=== PATIENT | female | born 1980 | race Caucasian/White ===

== ENCOUNTER 2018-02-09 22:40 | Inpatient (IN) | payer MEDICARE ==
[2018-02-09] MEDS ORDERED: LIDOCAINE 1% INJ 10MG/ML (20 ML MDV) SQ STA (23:26)
--- NOTE | 2018-02-09 23:34 | ED ---
General Adult HPI <Cindy Mendez - Last Filed: 02/10/18 00:24> - General Source: patient, RN notes reviewed, old records reviewed Mode of arrival: ambulatory Limitations: no limitations <Car Aj - Last Filed: 02/10/18 06:24> - General Chief complaint: Psychiatric Symptoms Stated complaint: Sucidal, lacerations Time Seen by Provider: 02/09/18 22:51 - History of Present Illness Initial comments: this is a 38-year-old female the ER for evaluation of psychiatric treatment. Patient has history of psychiatric illness coming in with couple drinks and shots that were drank tonight. Patient has psychiatric symptoms suicidal thoughts and she did cut herself tonight. (Car Aj) - Related Data Home Medications Medication Instructions Recorded Confirmed No Known Home Medications 02/10/18 02/10/18 Allergies Allergy/AdvReac Type Severity Reaction Status Date / Time naproxen [From Naprosyn] Allergy Anaphylaxis Verified 02/10/18 03:57 Review of Systems ROS Other: All systems not noted in ROS Statement are negative. <VanessaCindy - Last Filed: 02/10/18 00:24> ROS Other: All systems not noted in ROS Statement are negative. <Car Aj - Last Filed: 02/10/18 06:24> ROS Statement: Those systems with pertinent positive or pertinent negative responses have been documented in the HPI. Past Medical History Past Medical History: No Reported History History of Any Multi-Drug Resistant Organisms: None Reported Past Surgical History: Bladder Surgery, Ear Surgery, Hysterectomy, Tonsillectomy Past Psychological History: Anxiety, Bipolar, Depression, PTSD Smoking Status: Current some day smoker Past Alcohol Use History: Daily Past Drug Use History: None Reported <Car Aj - Last Filed: 02/10/18 06:24> General Exam Limitations: no limitations General appearance: alert, in no apparent distress Head exam: Present: atraumatic, normocephalic, normal inspection Eye exam: Present: normal appearance, PERRL, EOMI. Absent: scleral icterus, conjunctival injection, periorbital swelling ENT exam: Present: normal exam, mucous membranes moist Neck exam: Present: normal inspection. Absent: tenderness, meningismus, lymphadenopathy Respiratory exam: Present: normal lung sounds bilaterally. Absent: respiratory distress, wheezes, rales, rhonchi, stridor Cardiovascular Exam: Present: regular rate, normal rhythm, normal heart sounds. Absent: systolic murmur, diastolic murmur, rubs, gallop, clicks GI/Abdominal exam: Present: soft, normal bowel sounds. Absent: distended, tenderness, guarding, rebound, rigid Extremities exam: Present: normal inspection, full ROM, normal capillary refill. Absent: tenderness, pedal edema, joint swelling, calf tenderness Back exam: Present: normal inspection Neurological exam: Present: alert, oriented X3, CN II-XII intact Psychiatric exam: Present: normal affect, normal mood Skin exam: Present: warm, dry, intact, normal color. Absent: rash <Car Aj - Last Filed: 02/10/18 06:24> Course <Cindy Mendez - Last Filed: 02/10/18 00:24> <Car Aj - Last Filed: 02/10/18 06:24> Vital Signs 02/09/18 22:43 Temperature 97.7 F Pulse Rate 76 Respiratory 18 Rate Blood Pressure 114/69 O2 Sat by Pulse 98 Oximetry - Reevaluation(s) Reevaluation #1: 02/10/18 01:33 patient is medically clear for psychiatric evaluation (Car Aj) Procedures - Laceration Laceration #1 Site: upper extremity Size (cm): 3 Description: linear Depth: simple, single layer Anesthetic Used: lidocaine 1% Anesthesia Technique: local infiltration Amount (mls): 5 Pre-repair: wound explored, irrigated extensively Type of Sutures: nylon Size of Sutures: 4-0 Number of Sutures: 3 Technique: simple, interrupted Patient Tolerated Procedure: well, no complications Laceration #2 Site: upper extremity (Left wrist) Size (cm): 3 Description: linear Depth: simple, single layer Anesthetic Used: lidocaine 1% Anesthesia Technique: local infiltration Amount (mls): 4 Pre-repair: wound explored, irrigated extensively Type of Sutures: nylon Size of Sutures: 4-0 Number of Sutures: 4 Technique: simple, interrupted Patient Tolerated Procedure: well, no complications <Cindy Mendez - Last Filed: 02/10/18 00:24> Medical Decision Making <Cindy Mendez - Last Filed: 02/10/18 00:24> <Car Aj - Last Filed: 02/10/18 06:24> - Medical Decision Making 38 female will be admitted for psychiatric evaluation and treatment (Car Aj) - Lab Data Lab Results 02/09/18 Range/Units 23:10 Urine Opiates Screen Not Detected (NotDetected) Ur Oxycodone Screen Not Detected (NotDetected) Urine Methadone Screen Not Detected (NotDetected) Ur Propoxyphene Screen Not Detected (NotDetected) Ur Barbiturates Screen Not Detected (NotDetected) U Tricyclic Antidepress Not Detected (NotDetected) Ur Phencyclidine Scrn Not Detected (NotDetected) Ur Amphetamines Screen Not Detected (NotDetected) U Methamphetamines Scrn Not Detected (NotDetected) U Benzodiazepines Scrn Not Detected (NotDetected) Urine Cocaine Screen Not Detected (NotDetected) U Marijuana (THC) Screen Not Detected (NotDetected) Disposition <Cindy Mendez - Last Filed: 02/10/18 00:24> Is patient prescribed a controlled substance at d/c from ED?: No <Car Aj - Last Filed: 02/10/18 06:24> Clinical Impression: Depression, Suicidal ideation Disposition: TRANSFER TO PSYCH HOSP/UNIT Condition: Fair
[2018-02-10] MEDS ORDERED: ACETAMINOPHEN TAB 500 MG TAB PO STA (01:00)
[2018-02-10 01:31] LABS: Amphetamine Screen,Urine Not Detected (NotDetected); Barbiturate Screen,Urine Not Detected (NotDetected); Benzodiazepines Screen,Urine Not Detected (NotDetected); Cocaine Screen,Urine Not Detected (NotDetected); Methadone Screen, Urine Not Detected (NotDetected); Opiate Screen,Urine Not Detected (NotDetected); Oxycodone Screen, Urine Not Detected (NotDetected); Phencyclidine Screen,Urine Not Detected (NotDetected); Tricyclic Antidepressant,Urine Not Detected (NotDetected); Urn Cannabinoid Scrn Not Detected (NotDetected)
[2018-02-10] MEDS ORDERED: MAG HYDROX/AL HYDROX/SIMETH 30 ML CUP PO PRN (02:57)
[2018-02-10] MEDS: LORazepam 1 MG TAB PO PRN ×2 (03:43→20:49)
[2018-02-10 04:35] VITALS: BMI 36.8
[2018-02-10] MEDS ORDERED: DIPH,PERTUS(ACELL)TETVAC-LF 0.5 ML VIAL IM ONE (09:01)
--- NOTE | 2018-02-10 09:15 | P.HPMEDMHU ---
History of Present Illness H&P Date: 02/10/18 Chief Complaint: Consult for MHU HPI The patient is a 38-year-old female with past medical history of depression and bipolar disorder, PTSD and RLS who presented and was admitted to the mental health unit with suicidal/homicidal ideation after she presented with a left forearm laceration. Apparently the patient has been hearing voices that told her to cut her boyfriend, she instead decided to cut herself and called her mom subsequently redirected her to call EMS. On Arrival the patient had a laceration that was repaired with 3 sutures in the ED, she reports her last tetanus shot in 2007. She has a history of restless leg syndrome and states that if she does not take her medication routinely she would have insomnia with constant limb movements and jerking throughout the night. She denies any history of anemia. Review of Systems Review of systems were negative except per HPI Past Medical History Past Medical History: No Reported History History of Any Multi-Drug Resistant Organisms: None Reported Past Surgical History: Bladder Surgery, Ear Surgery, Hysterectomy, Tonsillectomy Past Psychological History: Anxiety, Bipolar, Depression, PTSD Smoking Status: Current some day smoker Past Alcohol Use History: Daily Past Drug Use History: None Reported Medications and Allergies Home Medications Medication Instructions Recorded Confirmed Type No Known Home Medications 02/10/18 02/10/18 History Allergies Allergy/AdvReac Type Severity Reaction Status Date / Time naproxen [From Naprosyn] Allergy Anaphylaxis Verified 02/10/18 03:57 Physical Exam Vitals: Vital Signs Temp Pulse Pulse Resp BP BP Pulse Ox 02/10/18 04:20 97.4 F L 59 L 16 116/70 02/10/18 03:19 98.2 F 55 L 16 102/55 98 02/09/18 22:43 97.7 F 76 18 114/69 98 Intake and Output 02/09/18 02/10/18 02/10/18 22:59 06:59 14:59 Other: Weight 98.883 kg 97.3 kg Constitutional: No acute distress, conversant, pleasant Eyes: Anicteric sclerae, moist conjunctiva, no lid-lag, PERRLA ENMT: NC/AT,Oropharynx clear, no erythema, exudates Neck:Supple, FROM, no masses, or JVD, No carotid bruits; No thyromegaly Lungs: Clear to auscultation, Clear to percussion, Normal respiratory effort, no accessory muscle use Cardiovascular: Heart regular in rate and rhythm, No murmurs, gallops, or rubs no peripheral edema Abdominal: Soft Nontender, nom distended, no guarding, no rebound or rigidity, Normoactive bowel sounds No hepatomegaly, No splenomegaly, No palpable mass No abdominal wall hernia noted Skin: Normal temperature, tone, texture, turgor, No induration No subcutaneous nodules, No rash, lesions, No ulcers Extremities:No digital cyanosis No clubbing, Pedal pulses intact and symmetrical Radial pulses intact and symmetrical Normal gait and station, No calf tenderness Psychiatric: Alert and oriented to person, place and time, tangential, disheveled, flat affect. Neuro: Muscles Strength 5/5 in all 4 extremities, Sensation to light touch grossly present throughout, Cranial nerves II-XII grossly intact. No focal sensory deficits - EENT ENT: pharyngeal erythema, tonsillar swelling Cranial Nerve Examination - Cranial Nerves Cranial Nerve II- Optic: Intact Cranial Nerve III- Oculomotor: Intact Cranial Nerve IV- Trochlear: Intact Cranial Nerve V- Trigeminal: Intact Cranial Nerve - Abducens: Intact Cranial Nerve VII- Facial: Intact Cranial Nerve VIII- Auditory: Intact Cranial Nerve IX- Glossopharyngeal: Intact Cranial Nerve X- Vagus: Intact Cranial Nerve XI- Accessory: Intact Cranial Nerve XII- Hypoglossal: Intact Thrombosis Risk Factor Assmnt - Choose All That Apply Other Risk Factors: No Other congenital or acquired thrombophilia - If yes, enter type in comment: No Assessment and Plan (1) Restless legs syndrome Current Visit: Yes Status: Acute Code(s): G25.81 - RESTLESS LEGS SYNDROME SNOMED Code(s): 95812096 (2) Depression Current Visit: Yes Status: Acute Code(s): F32.9 - MAJOR DEPRESSIVE DISORDER , SINGLE EPISODE, UNSPECIFIED SNOMED Code(s): 04906650 (3) Laceration Current Visit: Yes Status: Acute Code(s): JFG9927 - SNOMED Code(s): 915005117 (4) Suicidal ideation Current Visit: Yes Status: Acute Code(s): R45.851 - SUICIDAL IDEATIONS SNOMED Code(s): 7975948 Plan: The patient is admitted to the mental health unit with schizoaffective symptomology presenting with suicidal ideation and left upper extremity lacerations after hearing voices. We'll defer to the mental health team for ongoing medical psychotherapy and CBT. The patient is currently not up-to-date with her tetanus shot so we'll give her dose and restart therapy with her ropinirole for her RLS. The patient is otherwise medically stable, we'll plan to sign off today. Further questions or concerns please do not hesitate to contact the sound inpatient team. I appreciate the opportunity being involved ongoing care of this patient.
[2018-02-10] MEDS: NICOTINE 14MG/24HR PATCH TRANSDERM SCH (09:36)
[2018-02-10 10:18] LABS: Basophils % (A) 1 %; Eosinophils # (A) 0.1 k/uL (0-0.7); Eosinophils % (A) 2 %; HCT 43.5 % (34.0-46.0); HGB 13.2 gm/dL (11.4-16.0); Hypochromasia Slight; Lymphocytes % (A) 29 %; MCH 28.9 pg (25.0-35.0); MCHC 30.4 g/dL (31.0-37.0); MCV 95.1 fL (80.0-100.0); Mean Platelet Volume 6.7; Monocytes # (A) 0.3 k/uL (0-1.0); Monocytes % (A) 4 %; Neutrophils # (A) 4.4 k/uL (1.3-7.7); Neutrophils % (A) 63 %; Platelet Count 256 k/uL (150-450); RBC 4.57 m/uL (3.80-5.40); RDW 14.1 % (11.5-15.5)
[2018-02-10 10:22] LABS: Albumin 3.5 g/dL (3.5-5.0); Calcium 9.4 mg/dL (8.4-10.2); Potassium 5.4 mmol/L (3.5-5.1); Total Bilirubin 0.3 mg/dL (0.2-1.3)
--- NOTE | 2018-02-10 14:02 | P.HP ---
Psychiatric H&P - . H&P Date: 02/10/18 (Appearance/Attitude: []) History & Physical: Allergies Allergy/AdvReac Type Severity Reaction Status Date / Time naproxen [From Naprosyn] Allergy Anaphylaxis Verified 02/10/18 03:57 Vital Signs Temp 97.4 F L 02/10/18 04:20 Pulse 59 L 02/10/18 04:20 Resp 16 02/10/18 04:20 BP 116/70 02/10/18 04:20 Pulse Ox 98 02/10/18 03:19 Intake & Output 02/09/18 02/10/18 02/10/18 18:59 06:59 18:59 Weight 97.3 kg Laboratory Last Values Urine Opiates Screen Not Detected (NotDetected) 02/09/18 23:10 Ur Oxycodone Screen Not Detected (NotDetected) 02/09/18 23:10 Urine Methadone Screen Not Detected (NotDetected) 02/09/18 23:10 Ur Propoxyphene Screen Not Detected (NotDetected) 02/09/18 23:10 Ur Barbiturates Screen Not Detected (NotDetected) 02/09/18 23:10 U Tricyclic Antidepress Not Detected (NotDetected) 02/09/18 23:10 Ur Phencyclidine Scrn Not Detected (NotDetected) 02/09/18 23:10 Ur Amphetamines Screen Not Detected (NotDetected) 02/09/18 23:10 U Methamphetamines Scrn Not Detected (NotDetected) 02/09/18 23:10 U Benzodiazepines Scrn Not Detected (NotDetected) 02/09/18 23:10 Urine Cocaine Screen Not Detected (NotDetected) 02/09/18 23:10 U Marijuana (THC) Screen Not Detected (NotDetected) 02/09/18 23:10 02/10/18 10:00 The patient is a 38-year-old female with past medical history of depression and bipolar disorder, PTSD and RLS who presented and was admitted to the mental health unit with suicidal/homicidal ideation after she presented with a left forearm laceration. Cut arm with steak knife, three to four timed Apparently the patient has been hearing voices that told her to cut her boyfriend, she instead decided to cut herself and called her mom subsequently redirected her to call EMS. On Arrival the patient had a laceration that was repaired with 3 sutures in the ED, she reports her last tetanus shot in 2007. She has a history of restless leg syndrome and states that if she does not take her medication routinely she would have insomnia with constant limb movements and jerking throughout the night. She denies any history of anemia. Past Medical History Past Medical History: No Reported History History of Any Multi-Drug Resistant Organisms: None Reported Past Surgical History: Bladder Surgery, Ear Surgery, Hysterectomy, Tonsillectomy Past Psychological History: Anxiety, Bipolar, Depression, PTSD; started age 13 and she now seeing an therapist and will be set up Psychiatrist o Smoking Status: Current some day smoker 5/night Past Alcohol Use History: Daily-6 beers a night and 1/2 fireball Past Drug Use History: None Reported General Exam Limitations: no limitations General appearance: alert, in no apparent distress Head exam: Present: atraumatic, normocephalic, normal inspection Eye exam: Present: normal appearance, PERRL, EOMI. Absent: scleral icterus, conjunctival injection, periorbital swelling ENT exam: Present: normal exam, mucous membranes moist Neck exam: Present: normal inspection. Absent: tenderness, meningismus, lymphadenopathy Respiratory exam: Present: normal lung sounds bilaterally. Absent: respiratory distress, wheezes, rales, rhonchi, stridor Cardiovascular Exam: Present: regular rate, normal rhythm, normal heart sounds. Absent: systolic murmur, diastolic murmur, rubs, gallop, clicks GI/Abdominal exam: Present: soft, normal bowel sounds. Absent: distended, tenderness, guarding, rebound, rigid Extremities exam: Present: normal inspection, full ROM, normal capillary refill. Absent: tenderness, pedal edema, joint swelling, calf tenderness Back exam: Present: normal inspection Neurological exam: Present: alert, oriented X3, CN II-XII intact Psychiatric exam: Present: normal affect, Skin exam: Present: warm, dry, intact, normal color. Absent: rash 02/10/18 11:06 My mental status exam This is a 38-year-old female who lives with her boyfriend with past medical history of depression and bipolar disorder, posttraumatic stress disorder and RLS who is dressed in hospital gown flat affect and has not been compliant under Zyprexa which outpatient basis and stop that 8 months ago. Appearance behavior: She is alert to person place and time and event why she came in here and tells in detail that she was hearing voices and she was drinking alcohol usually 5 beers with a half fifth of fireball. 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 Behavior: She has able sit still but is responding to internal stimuli she says the voices are there and they're male and female nature. Last night she said she heard voices telling him to harm herself and her boyfriend. She has children from a previous marriage but has visitation every other weekend with her children. Speech/language; she is articulate and her discussion tends to trail off our during the interview and is obvious that she is responding to internal stimuli Thought process: She is responding to internal stimuli and admits to and is distracted by the voices Suicidal homicidal ideation: She has brought the hospital during middle night and then on the work early this morning and has had numerous psychiatric hospitalizations prior which all started when she was 13. She admits to being suicidal at the current time but is able to contract for safety. 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 She is able to do serial sevens backwards, current events and has a global intact cognition. Mood/affect; she does have a very flat affect and admits to being severely depressed on 10 anxiety 8 out of 10 and has the recurrent thoughts of suicide when she's had since she's been age 13. Insight and judgment: She knew that she needed help last night was able to come in to the ED. Impressions: Spectrum disorder schizoaffective bipolar type with acute exacerbation of suicidal ideation and attempt with laceration of her wrist. She was cared for in the emergency room and transferred the floor this morning. She was seen [id number] time 45 minutes and additional 30 minutes for collaboration with nursing staff. Considering she also is alcohol use disorder severe which is a co-factor for her schizoaffective bipolar type disorder to be severely [id number] the present time. She also has not been Plan: Medications to be added Invega, 3 mg at bedtime for her auditory hallucinations. Reason for the Invega and said she didn't like the side effect of Zyprexa and weight gain and thus the choice of Invega with the possibility of future injectable. A lithium level was obtained as well to see if she is in the therapeutic range which I doubt she is at the current time since she is not had a lithium level nor psychiatrist to evaluate her at least since June 2017. Should've been admitted and working memory or environment and safety concerns and safety checks will be monitored on a daily basis. She also be integrated barragan and therapeutic environment with social work, recreational therapy, nursing staff and call managed by internal medicine. It appears she does not have a structured social environment and is not adherent to the medical treatment plan. This will be emphasized to her during her hospitalization making sure she has follow-up appointments with the psychiatrist and her therapist. Assessment and Plan (1) Depression Current Visit: Yes Status: Acute Code(s): F32.9 - MAJOR DEPRESSIVE DISORDER , SINGLE EPISODE, UNSPECIFIED SNOMED Code(s): 49132746 (2) Laceration Current Visit: Yes Status: Acute Code(s): QFN7676 - SNOMED Code(s): 120422047 (3) Restless legs syndrome Current Visit: Yes Status: Acute Code(s): G25.81 - RESTLESS LEGS SYNDROME SNOMED Code(s): 94236025 (4) Suicidal ideation Current Visit: Yes Status: Acute Code(s): R45.851 - SUICIDAL IDEATIONS SNOMED Code(s): 1460166 Altered Mental Status Exam - General General appearance: anxious, obese Limitations: no limitations - Head Head exam: atraumatic - Eye Eye exam: normal appearance, PERRL, EOMI With correction: Yes (20/20) Pupils: normal accommodation - ENT ENT exam: normal exam - Neck Neck exam: normal inspection - Respiratory Respiratory exam: normal lung sounds bilaterally - Cardiovascular Cardiovascular Exam: regular rate Peripheral pulses: 1+: Carotid (R), Carotid (L) - GI/Abdominal GI/Abdominal exam: soft, normal bowel sounds - Rectal Rectal exam: deferred - exam: deferred - Back Back exam: Reports: normal inspection, muscle spasm, paraspinal tenderness, vertebral tenderness - Neurological Neurological Exam: Oriented X3, CN II-XII Intact, Normal Gait - Psychiatric Psychiatric exam: depressed, anxious, manic - Skin Skin exam: warm
[2018-02-10 17:58] LABS: Hemoglobin A1C 4.9 % (4.0-6.0)
[2018-02-10] MEDS: ACETAMINOPHEN TAB 325 MG TAB PO PRN (18:38)
[2018-02-10] MEDS: PALIPERIDONE 3 MG TAB.ER.24 PO SCH (20:47)
[2018-02-10] MEDS: NALTREXONE HCL 50 MG TAB PO SCH (20:47)
[2018-02-10] MEDS ORDERED: PALIPERIDONE 3 MG TAB.ER.24 PO SCH (22:45)
[2018-02-11] MEDS: MAGNESIUM HYDROXIDE 2,400 MG/10 ML CUP PO PRN (06:51)
[2018-02-11] MEDS: NICOTINE 14MG/24HR PATCH TRANSDERM SCH (07:55)
[2018-02-11] MEDS ORDERED: NALTREXONE HCL 50 MG TAB PO SCH (09:00)
--- NOTE | 2018-02-11 12:47 | P.PN ---
Progress Note - Text Progress Note Date: 02/11/18 Interval History: The patient presents alert, pleasant, hypomanic and cooperative. There calmly seated without any agitated behavior. [She] reports that [3 out of 10] mood is good. Affect is congruent and euthymic. [She] deny having any suicidal or homicidal ideation intent or plan. [She] denies any auditory or visual hallucinations. There is no evidence of any delusional thought content. [] thought process is linear and goal-directed. [Her] speech is fluent and pressured. [Her] memory and concentration is grossly intact for the purposes of this session. Mental Status: [] Mental status exam: She presented as a casually dressed and groomed young female who was pleasant on approach. She made eye contact and appeared to attend to the interview. She had a bright facial expression. She showed slight psychomotor retardation but no abnormal movements. Her speech was spontaneous with normal rate and rhythm. She demonstrated poverty of content speech. Her affect was blunted but stable and appropriate. She denied suicidal ideation, wishes or homicidal ideation. She denied feeling hopeless, helpless or worthless. She expressed no phobias, ideas reference, paranoid ideation or clear to occasional thoughts. Her thinking was concrete but her associations appeared coherent. He did not demonstrate perseverations or neologisms. She appeared to have no thought thought blocking. She denied hallucinations and did not appear to be responding to internal stimuli. Assessment: Overall she appears moderately mentally ill and markedly improve from admission. He questioned whether she may face charges of child abuse for child endangerment. Plan: Continue inpatient hospitalization. Continue safety precautions Plan: [Add back lithium 450 mg twice a day will do a blood level in 2 days continue with the Invega 3 mg at bedtime and ReVia for impulse control of alcohol. Discussed in detail today why she should not drink alcohol.] Face-to- face time was 12:30 PM to 12:46 PM
[2018-02-11] MEDS ORDERED: PALIPERIDONE 3 MG TAB.ER.24 PO SCH (20:00)
[2018-02-11] MEDS: PALIPERIDONE 3 MG TAB.ER.24 PO SCH (20:37)
[2018-02-11] MEDS: LITHIUM CARBONATE ER 450 MG TABLET.ER PO SCH (20:37)
[2018-02-11] MEDS: NALTREXONE HCL 50 MG TAB PO SCH (20:37)
[2018-02-11] MEDS: LORazepam 1 MG TAB PO PRN (20:42)
[2018-02-12 07:02] LABS: Appearance,Urine Clear (Clear); Bilirubin,Urine Negative (Negative); Blood,Urine Negative (Negative); Color,Urine Colorless; Glucose,Urine (UA) Negative (Negative); Ketones,Urine Negative (Negative); Leukocyte Esterase,Urine Negative (Negative); Nitrite,Urine Negative (Negative); PH, Urine 7.5 (5.0-8.0); Protein,Urine Negative (Negative); Specific Gravity,Urine 1.003 (1.001-1.035); Urobilinogen,Urine <2.0 mg/dL (<2.0)
[2018-02-12] MEDS: LITHIUM CARBONATE ER 450 MG TABLET.ER PO SCH ×2 (08:33→20:12)
[2018-02-12] MEDS: NICOTINE 14MG/24HR PATCH TRANSDERM SCH (08:33)
[2018-02-12 10:14] LABS: Albumin 3.5 g/dL (3.5-5.0); Calcium 9.7 mg/dL (8.4-10.2); Potassium 5.6 mmol/L (3.5-5.1); Total Bilirubin 0.3 mg/dL (0.2-1.3); Total Protein 5.8 g/dL (6.3-8.2)
--- NOTE | 2018-02-12 10:27 | P.PN ---
Progress Note - Text Progress Note Date: 02/12/18 Interval History: The patient presents alert, pleasant, hypomanic and cooperative. There calmly seated without any agitated behavior. [She] reports that [3 out of 10] mood is good. Affect is congruent and euthymic. [She] deny having any suicidal or homicidal ideation intent or plan. [She] denies any auditory or visual hallucinations which she states is quite nice. There is no evidence of any delusional thought content. [] thought process is linear and goal-directed. [Her] speech is fluent and pressured. [Her] memory and concentration is grossly intact for the purposes of this session. Mental Status: Mental status exam: She presented as a casually dressed and groomed young female who was pleasant on approach. She made eye contact and appeared to attend to the interview. She had a bright facial expression. She showed slight psychomotor retardation but no abnormal movements. Her speech was spontaneous with normal rate and rhythm. She demonstrated poverty of content speech. Her affect was blunted but stable and appropriate. She denied suicidal ideation, wishes or homicidal ideation. She denied feeling hopeless, helpless or worthless. She expressed no phobias, ideas reference, paranoid ideation or clear to occasional thoughts. Her thinking was concrete but her associations appeared coherent. He did not demonstrate perseverations or neologisms. She appeared to have no thought thought blocking. She denied hallucinations and did not appear to be responding to internal stimuli. Assessment: Overall she appears moderately mentally ill and markedly improve from admission. He questioned whether she may face charges of child abuse for child endangerment. It's most likely her diagnosis is bipolar affective disorder manic mood Plan: Continue inpatient hospitalization. Continue safety precautions Plan: [Add back lithium 450 mg twice a day will do a blood level in 2 days continue with the Invega mg at bedtime and ReVia 50 mg for impulse control of alcohol. Discussed in detail today why she should not drink alcohol. She will also have daily lithium levels knowledge she said 900 mg a day] [id number] time was 1010 to 10:25 AM
[2018-02-12 11:43] LABS: Urine Alcohol Negative (Negative); Urine Barbiturate Negative (Negative); Urine Cocaine Negative (Negative); Urine Methadone Negative (Negative); Urine Opiates Negative (Negative); Urine Phencyclidine Negative (Negative)
[2018-02-12] MEDS ORDERED: SODIUM POLYSTYRENE SULFONATE 15 GM/60 ML BOTTLE PO STA (13:18)
[2018-02-12] MEDS: NALTREXONE HCL 50 MG TAB PO SCH (20:12)
[2018-02-12] MEDS ORDERED: PALIPERIDONE 6 MG TAB.ER.24 PO SCH (21:00)
[2018-02-12] MEDS: MAGNESIUM HYDROXIDE 2,400 MG/10 ML CUP PO PRN (21:05)
[2018-02-13 08:45] LABS: Calcium 9.1 mg/dL (8.4-10.2); Potassium 4.2 mmol/L (3.5-5.1)
[2018-02-13] MEDS: NICOTINE 14MG/24HR PATCH TRANSDERM SCH (08:49)
[2018-02-13] MEDS: LITHIUM CARBONATE ER 450 MG TABLET.ER PO SCH ×2 (08:50→20:21)
[2018-02-13 09:36] LABS: Lithium 0.5 mmol/L
--- NOTE | 2018-02-13 09:40 | P.PN ---
Progress Note - Text Progress Note Date: 02/13/18 Interval History: The patient presents alert, pleasant, and cooperative. There calmly seated without any agitated behavior. [She] reports that [her] mood is good. Affect is congruent and hypomanic. [She] deny having any suicidal or homicidal ideation intent or plan. [She] denies any auditory or visual hallucinations. There is no evidence of any delusional thought content. [She] thought process is linear and goal-directed. [Her] speech is fluent and nonpressured. [Her] memory and concentration is grossly intact for the purposes of this session. Insight/Judgment: [She has appropriate judgment and insight and is able to talk about her previous life how difficult life has been with her. She did describe vivid dreams last night was the first night that she did not take her Ativan to sleep.] Assessment: [Bipolar affective disordermania] Plan: [I will increase her Invega to 9 mg tonight, maintain her lithium 450 twice a day, we'll obtain a lithium level and follow her electrolytes. She is dramatically improved over the week since she's been in the hospital. She will continue to be an group therapy, individual, recurrent medical evaluation of her electrolytes and liver enzymes and integrated into recreational therapy and group therapy. Total time spent with the patient [id number] was 20 minutes.]
[2018-02-13] MEDS: PALIPERIDONE 3 MG TAB.ER.24 PO SCH (20:21)
[2018-02-13] MEDS: NALTREXONE HCL 50 MG TAB PO SCH (20:21)
[2018-02-13] MEDS: MAGNESIUM HYDROXIDE 2,400 MG/10 ML CUP PO PRN (20:23)
[2018-02-13] MEDS ORDERED: PALIPERIDONE 6 MG TAB.ER.24 PO SCH (21:00)
[2018-02-14] MEDS: NICOTINE 14MG/24HR PATCH TRANSDERM SCH (09:05)
[2018-02-14] MEDS: LITHIUM CARBONATE ER 450 MG TABLET.ER PO SCH ×2 (09:06→20:20)
[2018-02-14] MEDS: ACETAMINOPHEN TAB 325 MG TAB PO PRN (16:46)
--- NOTE | 2018-02-14 19:40 | PN ---
PROGRESS NOTE The patient is seen and interviewed in detail, reports that she came in because her voices were getting louder and she relapsed to alcohol, but now she remembers not to drink again, as it makes her voices worse. She now reports her voices are slowing down with the medication. She has been feeling a lot better. She denies any racing thoughts. The patient still has some broken sleep, but denies any other issues. Denies any side effects from medication. Denies suicidal ideation. MENTAL EXAMINATION: Patient is alert, oriented x4, has fair eye contact, few-word sentences. Mood anxious with congruent affect. Denies suicidal ideation. I do not see her responding to internal stimuli. Insight, judgment, improving slowly and gradually. Will start her on Elavil to help her with sleep. ASSESSMENT: Bipolar disorder type I, most recently manic. PLAN: Will continue the current medication. We will start her on Elavil 25 mg at bedtime and titrate up accordingly. Patient is concerned about weight gain. The patient was reassured about the Elavil. The patient is willing to take the medication and encouraged to attend groups and meetings. Admitting support therapy provided. ANAM / MILTON: [id number] /
[2018-02-14] MEDS: AMITRIPTYLINE HCL 25 MG TAB PO SCH (20:20)
[2018-02-14] MEDS: NALTREXONE HCL 50 MG TAB PO SCH (20:20)
[2018-02-14] MEDS: PALIPERIDONE 3 MG TAB.ER.24 PO SCH (20:21)
[2018-02-15 06:52] VITALS: TEMP 98.2
[2018-02-15] MEDS: LITHIUM CARBONATE ER 450 MG TABLET.ER PO SCH ×2 (08:56→20:43)
[2018-02-15] MEDS: NICOTINE 14MG/24HR PATCH TRANSDERM SCH (08:56)
[2018-02-15] MEDS: MAGNESIUM HYDROXIDE 2,400 MG/10 ML CUP PO PRN (12:18)
--- NOTE | 2018-02-15 13:08 | PN ---
PROGRESS NOTE HISTORY: The patient is seen and interviewed, found sitting in the hallway. Reports she did not sleep good last night with Elavil and she wants it to be discontinued as did make her tired during the day. She stated she would handle her sleep issues on her own. Denying any other issues. Mood has been improving slowing and gradually. MENTAL STATUS CONDITION: Patient was alert, oriented x4. Fair eye contact. Speech few word sentences. Mood anxious, dysphoric. Congruent affect. Denies suicidal ideation. I did not see responding to internal stimuli. Insight and judgement improving slowly and gradually. ASSESSMENT: Bipolar disorder type 1, most recent episode manic, resolving. PLAN: Continue to adjust medications accordingly. Will discontinue Elavil as it did not help and patient did not like the side effects. We will continue to monitor her behaviors closely. ANAM / MILTON: [id number] /
[2018-02-15] MEDS: AMITRIPTYLINE HCL 25 MG TAB PO SCH (20:43)
[2018-02-15] MEDS: NALTREXONE HCL 50 MG TAB PO SCH (20:43)
[2018-02-15] MEDS: PALIPERIDONE 3 MG TAB.ER.24 PO SCH (20:43)
[2018-02-16 07:13] VITALS: BP 120/58; RESP 18
[2018-02-16] MEDS: LITHIUM CARBONATE ER 450 MG TABLET.ER PO SCH ×2 (07:53→19:54)
[2018-02-16] MEDS: NICOTINE 14MG/24HR PATCH TRANSDERM SCH (07:53)
--- NOTE | 2018-02-16 11:21 | P.PN ---
Progress Note - Text Progress Note Date: 02/16/18 Interval History: The patient presents somewhat fatigued and somnolent, pleasant , and cooperative. There calmly seated without any agitated behavior. [She] reports that [her] mood is greatly improved. Affect is congruent and hypomanic. [She] deny having any suicidal or homicidal ideation intent or plan. [She] denies any auditory or visual hallucinations. There is no evidence of any delusional thought content. [She] thought process is linear and goal-directed. [Her] speech is fluent and nonpressured. [Her] memory and concentration is grossly intact for the purposes of this session. Insight/Judgment: [She has appropriate judgment and insight and is able to talk about her previous life how difficult life has been with her. She did describe vivid dreams last night was the first night that she did not take her Ativan to sleep. She is currently having difficulty with insomnia night and Dr. Sanchez this weekend and had Elavil 25 mg at bedtime which greatly sedated her and interrupted her sleep and made her fatigue for the last 2 days. Thus as a drug drug interaction and will obtain Elavil blood level today and a lithium level in the morning.] Assessment: [Bipolar affective disordermania] Plan: [I will increase her Invega to 9 mg tonight, maintain her lithium 450 twice a day, we'll obtain a lithium level in the morning and follow her electrolytes. She is dramatically improved over the week since she's been in the hospital. She will continue to be an group therapy, individual, recurrent medical evaluation of her electrolytes and liver enzymes and integrated into recreational therapy and group therapy. Clinical impression today is that she is greatly improved but insomnia is still an issue but the addition of Elavil on has caused cognitive impairment with cholinergic side effects, including postural hypertension, difficulty urinating , poor focus and concentration, dry mouth and therefore want to see her improve over today. I urged her to drink water and carefully get up after setting. She has a meeting at 3:30 today and after getting report of that and the blood levels of discharge. Total time spent with the patient [id number] was 20 minutes.]
[2018-02-16] MEDS: MAGNESIUM HYDROXIDE 2,400 MG/10 ML CUP PO PRN (17:04)
[2018-02-16] MEDS: PALIPERIDONE 3 MG TAB.ER.24 PO SCH (19:54)
[2018-02-16] MEDS: NALTREXONE HCL 50 MG TAB PO SCH (19:54)
[2018-02-17] MEDS: LITHIUM CARBONATE ER 450 MG TABLET.ER PO SCH (08:34)
[2018-02-17] MEDS: NICOTINE 14MG/24HR PATCH TRANSDERM SCH (08:34)
[2018-02-17 10:37] VITALS: PULSE 52
[2018-02-17 14:09] LABS: Amit + Nort <10 ng/mL (90-250); Nortriptyline <10 ng/mL (50-140)
[2018-02-18] MEDS ORDERED: PALIPERIDONE 3 MG TAB.ER.24 PO SCH (09:00)
== END 2018-02-17 13:18 | disposition home or self-care (01) | DRG 885 ==
LOC: EC 22:40 → 3MHU 02-10 02:53
PROVIDERS: ADMIT Psychiatry & Neurology Psychiatry; ATTEND Psychiatry & Neurology Psychiatry
PROC: 0HQCXZZ Repair Left Upper Arm Skin, External Approach (ICD-10-PCS; principal; 2018-02-10)
PROC: 0HQEXZZ Repair Left Lower Arm Skin, External Approach (ICD-10-PCS; principal; 2018-02-10)
DX: F31.9 Bipolar disorder, unspecified (principal); R45.851 Suicidal ideations; F17.200 Nicotine dependence, unspecified, uncomplicated; F43.10 Post-traumatic stress disorder, unspecified; G25.81 Restless legs syndrome; G47.00 Insomnia, unspecified; Z90.710 Acquired absence of both cervix and uterus; Z88.8 Allergy status to other drugs, medicaments and biological substances; S61.512A Laceration without foreign body of left wrist, initial encounter; S41.119A Laceration without foreign body of unspecified upper arm, initial encounter; X78.9XXA Intentional self-harm by unspecified sharp object, initial encounter
CPT/HCPCS: 12002; 80048; 80053; 80061; 80178; 80306; 80335; 81003; 82075; 83036; 84443; 85025; 90715; 93005; 99285

== ENCOUNTER 2018-03-25 08:12 | Day surgery (SDC) | payer MEDICARE ==
[2018-03-18 14:05] VITALS: BMI 39.4
[~2018-03-25 08:12] MED LIST: DEXAMETHASONE SOD PHOSPHATE 10 MG/ML 1 ML VIAL IV ONE; DEXAMETHASONE SOD PHOSPHATE 4 MG/ML 1 ML VIAL IV ONE; FAMOTIDINE 20 MG/2 ML VIAL IV ONE; HYDROmorphone 0.5 MG/0.5 ML SYRINGE IVP PRN; LACTATED RINGERS 1,000 ML IV SCH; LIDOCAINE 1% 20 ML VIAL (10MG/ML) FOR IV START INTRADERMA PRN; MIDAZOLAM 2 MG/2 ML VIAL IV PRN; ONDANSETRON 4 MG/2 ML VIAL IVP ONE; SCOPOLAMINE 1.5MG/72HR PATCH TRANSDERM ONE; ceFAZolin 1,000 MG in DEXTROSE/WATER 1 50ML.BAG IV ONE
[2018-03-25 09:02] VITALS: RESP 16
[2018-03-25] MEDS ORDERED: LIDOCAINE 1% INJ 10MG/ML (20 ML MDV) ONE (10:28)
[2018-03-25] MEDS ORDERED: PROPOFOL 10 MG/ML 20 ML VIAL IV ONE (10:28)
[2018-03-25] MEDS ORDERED: fentaNYL (PF) 50 MCG/ML 2 ML AMP ONE (10:28)
[2018-03-25] MEDS ORDERED: HYDROmorphone (PF) 1 MG/ML ONE (10:28)
[2018-03-25] MEDS ORDERED: MIDAZOLAM 2 MG/2 ML VIAL ONE (10:28)
[2018-03-25] MEDS ORDERED: SUCCINYLCHOLINE CHLORIDE 100 MG/5 ML SYR IV ONE (10:28)
[2018-03-25] MEDS ORDERED: OFLOXACIN 0.3% OPHTH DROPS 5 ML BOTTLE BOTH EARS ONE ×2 (10:38→10:42)
[2018-03-25] MEDS ORDERED: OXYMETAZOLINE 0.05% NASL SPRAY 1 SPRAY BOTTLE EA NOSTRIL ONE (10:51)
--- NOTE | 2018-03-25 11:03 | P.OP ---
Date of Procedure: 03/25/18 Preoperative Diagnosis: Bilateral chronic otitis media with effusion Conductive hearing loss Postoperative Diagnosis: Same Left intranasal adhesions Procedure(s) Performed: Bilateral ventilation tube placement with ear microscopy Nasal endoscopy with bilateral eustachian tuboplasty Nasal endoscopy with lysis of adhesions left intranasal Outfracture of inferior turbinates bilateral Anesthesia: [id number] Surgeon: Mika Dominguez Estimated Blood Loss (ml): 2 Pathology: none sent Condition: stable Disposition: PACU Indications for Procedure: The 38-year-old white female whose had difficulties with her ears for many years with conductive hearing loss and multiple sets of ventilation tubes. She' s had persistent conductive hearing loss and appears to have middle ear effusions. She also has myringosclerosis bilaterally Operative Findings: Bilateral myringosclerosis the tympanic membrane with thickening. This is worse on the left than the right. There was bilateral serous middle ear effusions also. Nasopharynx was unremarkable patient was also noted to have adhesions between the inferior turbinate and septum on the left which required lysing in order to access the nasopharynx endoscopically Description of Procedure: The patient was brought in the operative suite and placed in a supine position. The patient underwent induction of general anesthesia with oral endotracheal intubation without difficulty. The patient was prepped and draped in usual aseptic fashion. The microscope positioned over the right ear and cerumen was cleaned from the external auditory canal. An anteroinferior myringotomy was placed in radial fashion trying to avoid myringosclerosis although there was considerable myringosclerosis. The middle ear effusion was aspirated and a 1.1 mm collar bobbin ventilation tube was placed without difficulty. Floxin otic suspension placed and external auditory canal followed by sterile cotton ball. Attention was then turned to the left with the procedure was followed as it had been on the right. Again there was considerable myringosclerosis even more so on the left. Once this was completed attention was turned to the nose and nasopharynx. Nasal endoscopy was performed bilaterally. Beginning on the right the inferior turbinate was outfractured with the Bee elevator in order to access the nasopharynx. The nasopharynx was well visualized and balloon sinus plasty was performed with the acclarent balloon eustachian tuboplasty instrumentation with dilation of a 6 mm balloon. This was done twice and then withdrawn. Good hemostasis was noted. Attention was then turned to the left. There were adhesions between the inferior turbinate and the septum which required lysing sharply endoscopically and then the inferior turbinate was outfractured. Nasopharynx was then well visualized and the eustachian tuboplasty was performed again as it had been on the right. Once this was completed again hemostasis was noted to be good. The endoscope was withdrawn. The patient was then allowed to emerge from general anesthesia having type she' ll well was extubated in the operating suite and transferred postoperative recovery area in satisfactory condition.
[2018-03-25 11:20] VITALS: TEMP 97.7
[2018-03-25 12:06] VITALS: BP 99/66; PULSE 55
== END 2018-03-25 12:31 | disposition home or self-care (01) ==
LOC: OR 08:12
PROVIDERS: ATTEND Otolaryngology
DX: H65.493 Other chronic nonsuppurative otitis media, bilateral (principal); J34.89 Other specified disorders of nose and nasal sinuses; F41.9 Anxiety disorder, unspecified; F17.200 Nicotine dependence, unspecified, uncomplicated; F31.9 Bipolar disorder, unspecified; Z88.6 Allergy status to analgesic agent; Z79.899 Other long term (current) drug therapy
CPT/HCPCS: 69436; C9745

== ENCOUNTER 2019-01-02 07:57 | Inpatient (IN) | payer MEDICARE, MEDICAID ==
--- NOTE | 2019-01-02 08:19 | ED ---
Psych HPI - General Chief Complaint: Psychiatric Symptoms Stated Complaint: EPS eval Time Seen by Provider: 01/02/19 08:03 Source: patient, RN notes reviewed Mode of arrival: ambulatory - History of Present Illness Initial Comments: This is a 38-year-old female history depression who states she takes lithium and Abilify as well as Xanax who states she's having voices tell her to herself. 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 She does also admit to drinking alcohol using cocaine last night. She states this helps the voices go away. He denies any fevers chills nausea vomiting sweats she states her last tetanus shot was 2017 she has had a hysterectomy and denies any chance of . No other current modifying factors MD Complaint: feels depressed, other - Related Data Home Medications Medication Instructions Recorded Confirmed ALPRAZolam [Xanax] 1 - 2 mg PO HS PRN 01/02/19 01/02/19 ARIPiprazole IM SYRINGE [Abilify 400 mg IM Q28D 01/02/19 01/02/19 Maintena Syringe] [place] Carbonate 1,200 mg PO HS 01/02/19 01/02/19 Allergies Allergy/AdvReac Type Severity Reaction Status Date / Time naproxen [From Naprosyn] Allergy Anaphylaxis Verified 01/02/19 08:41 Review of Systems ROS Statement: Those systems with pertinent positive or pertinent negative responses have been documented in the HPI. ROS Other: All systems not noted in ROS Statement are negative. Past Medical History Past Medical History: No Reported History Additional Past Medical History / Comment(s): Chronic Otitis Media History of Any Multi-Drug Resistant Organisms: None Reported Past Surgical History: Bladder Surgery, Ear Surgery, Hysterectomy, Tonsillectomy Past Anesthesia/Blood Transfusion Reactions: No Reported Reaction Past Psychological History: Anxiety, Bipolar, Depression, PTSD, Schizophrenia Smoking Status: Current some day smoker - Past Family History Mother Family Medical History: No Reported History General Exam - General Exam Comments Initial Comments: This is a well-developed well-nourished awake alert oriented 3 female Limitations: no limitations General appearance: alert, in no apparent distress Head exam: Present: atraumatic, normocephalic, normal inspection Eye exam: Present: normal appearance, PERRL, EOMI. Absent: scleral icterus, conjunctival injection, periorbital swelling ENT exam: Present: normal exam, mucous membranes moist Neck exam: Present: normal inspection. Absent: tenderness, meningismus, lymphadenopathy Respiratory exam: Present: normal lung sounds bilaterally. Absent: respiratory distress, wheezes, rales, rhonchi, stridor Cardiovascular Exam: Present: regular rate, normal rhythm, normal heart sounds. Absent: systolic murmur, diastolic murmur, rubs, gallop, clicks GI/Abdominal exam: Present: soft, normal bowel sounds. Absent: distended, tenderness, guarding, rebound, rigid Extremities exam: Present: full ROM, normal capillary refill, other (Approximately 10 cm transverse superficial laceration across the anterior medial proximal thigh no active bleeding no formed by seen no repair indicated. Other transverse linear scars noted on both eyes.). Absent: tenderness, pedal edema, joint swelling, calf tenderness Back exam: Present: normal inspection Neurological exam: Present: alert, oriented X3, CN II-XII intact Psychiatric exam: Present: depressed, flat affect, suicidal ideation Skin exam: Present: warm, dry, intact, normal color. Absent: rash Course Vital Signs 01/02/19 08:02 Temperature 97.9 F Pulse Rate 69 Respiratory 16 Rate Blood Pressure 122/80 O2 Sat by Pulse 96 Oximetry Medical Decision Making - Medical Decision Making The patient was evaluated by psychiatric service and will be admitted for inpatient treatment. - Lab Data Lab Results 01/02/19 01/02/19 Range/Units 08:20 08:45 Urine Opiates Screen Not Detected (NotDetected) Ur Oxycodone Screen Not Detected (NotDetected) Urine Methadone Screen Not Detected (NotDetected) Ur Propoxyphene Screen Not Detected (NotDetected) Ur Barbiturates Screen Not Detected (NotDetected) U Tricyclic Antidepress Not Detected (NotDetected) Ur Phencyclidine Scrn Not Detected (NotDetected) Ur Amphetamines Screen Not Detected (NotDetected) U Methamphetamines Scrn Not Detected (NotDetected) U Benzodiazepines Scrn Detected H (NotDetected) [place] 1.1 mmol/L Urine Cocaine Screen Detected H (NotDetected) U Marijuana (THC) Screen Detected H (NotDetected) Disposition Clinical Impression: Depression, Suicidal ideation Disposition: TRANSFER TO PSYCH HOSP/UNIT Condition: Fair Referrals: Afshin Ross MD [Primary Care Provider] - 1-2 days
[2019-01-02 08:55] LABS: Amphetamine Screen,Urine Not Detected (NotDetected); Barbiturate Screen,Urine Not Detected (NotDetected); Benzodiazepines Screen,Urine Detected (NotDetected); Cocaine Screen,Urine Detected (NotDetected); Methadone Screen, Urine Not Detected (NotDetected); Opiate Screen,Urine Not Detected (NotDetected); Oxycodone Screen, Urine Not Detected (NotDetected); Phencyclidine Screen,Urine Not Detected (NotDetected); Tricyclic Antidepressant,Urine Not Detected (NotDetected); Urn Cannabinoid Scrn Detected (NotDetected)
[2019-01-02] MEDS ORDERED: ZIPRASIDONE 20 MG VIAL IM PRN (14:37)
[2019-01-02] MEDS ORDERED: MAGNESIUM HYDROXIDE 2,400 MG/10 ML CUP PO PRN (14:37)
[2019-01-02] MEDS ORDERED: ACETAMINOPHEN TAB 325 MG TAB PO PRN (14:37)
[2019-01-02] MEDS ORDERED: MAG HYDROX/AL HYDROX/SIMETH 30 ML CUP PO PRN (14:37)
[2019-01-02 15:50] VITALS: BMI 39.6
--- NOTE | 2019-01-02 16:36 | P.CONS ---
History of Present Illness - Reason for Consult Consult date: 01/02/19 - History of Present Illness The patient is a 38-year-old female with a PMH of depression, self harm, and schizophrenia who presented to the ED after cutting herself in stating that she is hearing voices. Patient was seen and examined in the mental health unit. The patient states that over the past 1 week, her Abilify injections effects had gradually been wearing off and her voices gradually became louder and told her to cut herself. She proceeded to cut herself on her right thigh while using alcohol and cocaine, which she states drowned out some of the noises. Patient also notes that over the past 1 week, she has had persistent bilateral lower extremity edema. She states that she occasionally gets this edema however it normally resolves spontaneously. The patient's Nadine from the ED was positive for cocaine, marijuana, and benzodiazepines. She otherwise denied chest pain, shortness of breath, orthopnea, or PND. She further states that her exercise tolerance is good and she is able to climb stairs without difficulty. She further denied fever, chills, cough, nausea, vomiting, or abdominal pain. Review of Systems Pertinent positives and negatives as discussed in HPI, a complete review of systems was performed and all other systems are negative. Past Medical History Past Medical History: No Reported History Additional Past Medical History / Comment(s): Chronic Otitis Media History of Any Multi-Drug Resistant Organisms: None Reported Past Surgical History: Bladder Surgery, Ear Surgery, Hysterectomy, Tonsillectomy Past Anesthesia/Blood Transfusion Reactions: No Reported Reaction Past Psychological History: Anxiety, Bipolar, Depression, PTSD, Schizophrenia Additional Psychological History / Comment(s): Borderline Personality Disorder Smoking Status: Light tobacco smoker Past Alcohol Use History: Abuse Additional Past Alcohol Use History / Comment(s): Patient reports she was sober from alcohol use since 02/09/18 but relasped 12/26/18 and has drank twice since then. Past Drug Use History: Cocaine, Marijuana - Past Family History Mother Family Medical History: No Reported History Medications and Allergies Home Medications Medication Instructions Recorded Confirmed Type ALPRAZolam [Xanax] 1 - 2 mg PO HS PRN 01/02/19 01/02/19 History ARIPiprazole IM SYRINGE [Abilify 400 mg IM Q28D 01/02/19 01/02/19 History Maintena Syringe] [place] Carbonate 1,200 mg PO HS 01/02/19 01/02/19 History Allergies Allergy/AdvReac Type Severity Reaction Status Date / Time naproxen [From Naprosyn] Allergy Anaphylaxis Verified 01/02/19 08:41 Physical Exam Vitals: Vital Signs Temp Pulse Pulse Resp BP BP Pulse Ox 01/02/19 15:40 98 F 66 20 130/68 01/02/19 08:02 97.9 F 69 16 122/80 96 Intake and Output 01/02/19 01/02/19 01/02/19 06:59 14:59 22:59 Other: Weight 102.058 kg General: non toxic, no distress, appears at stated age, obese Derm: Right thigh 5-6 cm laceration, healing, no unusual ecchymoses, warm, dry Head: atraumatic, normocephalic, symmetric Eyes: EOMI, no lid lag, anicteric sclera, pupils equal round reactive to light ENT: Nose and ears atraumatic, no thrush, no pharyngeal erythema Neck: No thyromegaly, no cervical lymphadenopathy, trachea midline, supple Mouth: no lip lesion, mucus membranes moist Cardiovascular: S1S2 reg, no murmur, positive posterior tibial pulse bilateral, 2+ bilateral lower extremity pitting edema to thighs, capillary refill less than 2 seconds Lungs: CTA bilateral, no rhonchi, no rales , no accessory muscle use Abdominal: soft, nontender to palpation, no guarding, no appreciable organomegaly, normal bowel sounds Ext: no gross muscle atrophy, muscle strength 5 out of 5 in all 4 extremities grossly, no contractures, Neuro: CN II-XI grossly intact, light touch intact all 4 extremities, finger to nose within normal limits, Psych: Alert, oriented, appropriate affect Results Labs: Abnormal Lab Results - Last 24 Hours (Table) 01/02/19 Range/Units 08:20 U Benzodiazepines Scrn Detected H (NotDetected) Urine Cocaine Screen Detected H (NotDetected) U Marijuana (THC) Screen Detected H (NotDetected) Assessment and Plan Plan: Bilateral lower extremity pitting edema -Obtain BNP -Advised compression stockings Cocaine and alcohol abuse -Patient advised on importance of cessation Schizophrenia and self-harm -As per psychiatry Thank you for allowing us to participate in the care of this patient. We will follow peripherally. Do not hesitate to contact us with questions. Someone can be reached from the [facility] hospitalist group at all hours of the day at [phone].
[2019-01-02] MEDS: LITHIUM CARBONATE 300 MG CAP PO SCH (20:50)
[2019-01-02] MEDS: LORazepam 1 MG TAB PO PRN (20:50)
[2019-01-03] LABS: Hemoglobin A1C 4.9 % (4.0-6.0)
[2019-01-03 07:53] LABS: Basophils # (A) 0.1 k/uL (0-0.2); Basophils % (A) 1 %; Eosinophils # (A) 0.2 k/uL (0-0.7); Eosinophils % (A) 3 %; HGB 12.9 gm/dL (11.4-16.0); Hypochromasia Slight; Lymphocytes # (A) 2.4 k/uL (1.0-4.8); Lymphocytes % (A) 27 %; MCH 28.9 pg (25.0-35.0); MCHC 30.1 g/dL (31.0-37.0); Mean Platelet Volume 6.9; Monocytes # (A) 0.3 k/uL (0-1.0); Monocytes % (A) 3 %; Neutrophils # (A) 5.7 k/uL (1.3-7.7); Neutrophils % (A) 65 %; Platelet Count 294 k/uL (150-450); RBC 4.48 m/uL (3.80-5.40); RDW 14.3 % (11.5-15.5); WBC 8.6 k/uL (3.8-10.6)
[2019-01-03 08:13] LABS: Albumin 3.8 g/dL (3.5-5.0); Calcium 9.5 mg/dL (8.4-10.2); Potassium 4.8 mmol/L (3.5-5.1); Total Bilirubin 0.4 mg/dL (0.2-1.3); Total Protein 6.5 g/dL (6.3-8.2)
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
[2019-01-03 17:32] LABS: Appearance,Urine Cloudy (Clear); Bacteria,Urine Rare /hpf; Bilirubin,Urine Negative (Negative); Blood,Urine Negative (Negative); Color,Urine Colorless; Glucose,Urine (UA) Negative (Negative); Ketones,Urine Negative (Negative); Leukocyte Esterase,Urine Negative (Negative); Nitrite,Urine Negative (Negative); PH, Urine 6.5 (5.0-8.0); Protein,Urine Negative (Negative); RBC,Urine <1 /hpf (0-5); Specific Gravity,Urine 1.003 (1.001-1.035); Squamous Epithelial Cell,Urine 5 /hpf (0-4); Urobilinogen,Urine <2.0 mg/dL (<2.0); WBC,Urine 1 /hpf (0-5)
[2019-01-03] MEDS: LORazepam 1 MG TAB PO PRN (18:19)
[2019-01-03] MEDS: LITHIUM CARBONATE 300 MG CAP PO SCH (20:43)
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
[2019-01-04] MEDS: LITHIUM CARBONATE 300 MG CAP PO SCH (20:31)
[2019-01-04] MEDS ORDERED: hydrOXYzine HCL 25 MG TAB PO SCH (21:00)
[2019-01-05 06:30] VITALS: BP 104/64; PULSE 63; RESP 18; TEMP 98.6
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
== END 2019-01-05 14:06 | disposition home or self-care (01) | DRG 885 ==
LOC: EC 07:57 → 3MHU 14:31
PROVIDERS: ADMIT Psychiatry & Neurology Psychiatry; ATTEND Psychiatry & Neurology Psychiatry
DX: F31.5 Bipolar disorder, current episode depressed, severe, with psychotic features (principal); F17.200 Nicotine dependence, unspecified, uncomplicated; F43.10 Post-traumatic stress disorder, unspecified; F60.3 Borderline personality disorder; G47.00 Insomnia, unspecified; F14.10 Cocaine abuse, uncomplicated; F10.10 Alcohol abuse, uncomplicated; F20.9 Schizophrenia, unspecified; Z62.810 Personal history of physical and sexual abuse in childhood; Z81.8 Family history of other mental and behavioral disorders; Z90.710 Acquired absence of both cervix and uterus; Z91.410 Personal history of adult physical and sexual abuse; Z91.5 Personal history of self-harm; Z86.19 Personal history of other infectious and parasitic diseases; Z90.89 Acquired absence of other organs; Z88.6 Allergy status to analgesic agent
CPT/HCPCS: 36415; 80053; 80061; 80178; 80306; 81001; 81025; 82075; 83036; 83880; 84443; 85025; 99285

== ENCOUNTER → 2020-03-20 | Outpatient (CLI) | payer MEDICARE, OTHER ==
[2020-03-20 13:48] VITALS: BP 114/80; PULSE 74; RESP 18; TEMP 98.3; BMI 44.9
--- NOTE | 2020-03-20 14:27 | P.HPBAR ---
Bariatric H&P - History & Physicial H&P Date: 03/20/20 History & Physicial: Visit/CC: pre-surgical appt Patient initial contact: Initial weight: Initial weight in pounds: Height: 5 ft 5 in Initial BMI: Last weight: Current weight: 122.47 kg Current weight in pounds: 270.00 Current BMI: 44.9 [place] body weight (based on NIH guidelines): 56.699 kg Excess body weight loss: The patient is a 40 year-old F who presents for Bariatric Assessment. Patient presents today for presurgical consultation. She is interested in sleeve gastrectomy. She is morbidly obese. Her BMI is 45. Past Medical History Past Medical History: No Reported History Additional Past Medical History / Comment(s): Chronic Otitis Media History of Any Multi-Drug Resistant Organisms: None Reported Past Surgical History: Bladder Surgery, Ear Surgery, Hysterectomy, Tonsillectomy Past Anesthesia/Blood Transfusion Reactions: No Reported Reaction Past Psychological History: Anxiety, Bipolar, Depression, PTSD, Schizophrenia Additional Psychological History / Comment(s): Borderline Personality Disorder Smoking Status: Current some day smoker Past Alcohol Use History: Abuse Additional Past Alcohol Use History / Comment(s): Patient reports she was sober from alcohol use since 02/09/18 but relasped 12/26/18 and has drank twice since then. Past Drug Use History: Cocaine, Marijuana Additional Drug Use History / Comment(s): smokes 1/2 joint a night for sleep; aware to stop 24 hours prior to surgery - Past Family History Mother Family Medical History: No Reported History Surgical - Exam Vital Signs Temp Pulse Resp BP 98.3 F 74 18 114/80 03/20/20 13:41 03/20/20 13:41 03/20/20 13:41 03/20/20 13:41 - General well developed, well nourished, no distress - Eyes PERRL - ENT normal pinna - Neck no masses, no bruits - Respiratory normal expansion - Cardiovascular Rhythm: regular - Abdomen Abdomen: soft, non tender Bariatric Assessment & Plan Plan: Morbid obesity, BMI 45. Patient will undergo EGD. Patient has Understanding of sleeve gastrectomy. We went over the risks and benefits of procedure. She'll be scheduled for her procedure once her insurance authorization have been met. Bariatric Checklist Checklist: Plan: Checklist: EGD: 1. Hiatal hernia: 2. H. Pylori: HgbA1c: Vitamin D: Smoking: Light tobacco smoker Primary care physician referral: Dr. Ross Psychiatry clearance: Cardiology clearance: Sleep study: Diet journal: VTE risk score: VTE risk level: Rehab needs at discharge:
== END | disposition home or self-care (01) ==
LOC: BARWHC3 13:25
PROVIDERS: ATTEND Surgery
DX: E66.01 Morbid (severe) obesity due to excess calories (principal); F17.210 Nicotine dependence, cigarettes, uncomplicated; Z68.42 Body mass index [BMI] 45.0-49.9, adult
CPT/HCPCS: 99211

== ENCOUNTER → 2020-04-07 | Day surgery (SDC) | payer MEDICARE, OTHER ==
[2020-04-05 10:47] VITALS: BMI 44.9
[~2020-04-07] MED LIST changes: -DEXAMETHASONE SOD PHOSPHATE 10 MG/ML 1 ML VIAL IV ONE; -DEXAMETHASONE SOD PHOSPHATE 4 MG/ML 1 ML VIAL IV ONE; -FAMOTIDINE 20 MG/2 ML VIAL IV ONE; -HYDROmorphone 0.5 MG/0.5 ML SYRINGE IVP PRN; -LIDOCAINE 1% 20 ML VIAL (10MG/ML) FOR IV START INTRADERMA PRN; +LIDOCAINE 1% INJ 10MG/ML (20 ML MDV) ONE; -MIDAZOLAM 2 MG/2 ML VIAL IV PRN; +MIDAZOLAM 2 MG/2 ML VIAL ONE; -ONDANSETRON 4 MG/2 ML VIAL IVP ONE; +PROPOFOL 10 MG/ML 20 ML VIAL IV ONE; -SCOPOLAMINE 1.5MG/72HR PATCH TRANSDERM ONE; -ceFAZolin 1,000 MG in DEXTROSE/WATER 1 50ML.BAG IV ONE; +fentaNYL (PF) 50 MCG/ML 2 ML AMP ONE
[2020-04-07 10:53] VITALS: TEMP 97.1
--- NOTE | 2020-04-07 12:11 | P.GSHP ---
History of Present Illness H&P Date: 04/07/20 Chief Complaint: GERD, morbid obesity 's is a 40-year-old female who presents today for EGD. She's had issues with GERD. She is undergoing workup for sleeve gastrectomy. BMI is 45 Past Medical History Past Medical History: No Reported History Additional Past Medical History / Comment(s): Chronic Otitis Media. recent left shoulder strain History of Any Multi-Drug Resistant Organisms: None Reported Past Surgical History: Bladder Surgery, Ear Surgery, Hysterectomy, Tonsillectomy Past Anesthesia/Blood Transfusion Reactions: No Reported Reaction Smoking Status: Former smoker - Past Family History Mother Family Medical History: No Reported History Medications and Allergies Home Medications Medication Instructions Recorded Confirmed Type Aripiprazole Lauroxil [Aristada] 441 mg IM DIRECTED 03/20/20 04/07/20 History Divalproex Sodium [Depakote] 500 mg PO DAILY 03/20/20 04/07/20 History Levothyroxine Sodium [Synthroid] 125 mcg PO DAILY 03/20/20 04/07/20 History QUEtiapine [SEROquel] 200 mg PO HS 03/20/20 04/07/20 History buPROPion HCL [buPROPion HCL SR] 200 mg PO DAILY 03/20/20 04/07/20 History Allergies Allergy/AdvReac Type Severity Reaction Status Date / Time naproxen [From Naprosyn] Allergy Anaphylaxis Verified 04/07/20 10:53 Surgical - Exam Vital Signs Temp Pulse Resp BP Pulse Ox 97.1 F L 66 16 123/63 98 04/07/20 10:51 04/07/20 10:51 04/07/20 10:51 04/07/20 10:51 04/07/20 10:51 - General well developed, well nourished, no distress - Eyes PERRL - ENT normal pinna - Neck no masses - Respiratory normal expansion - Cardiovascular Rhythm: regular - Abdomen Abdomen: soft, non tender Assessment and Plan Assessment: GERD, morbid obesity. We'll perform EGD.
--- NOTE | 2020-04-07 12:20 | P.OP ---
Date of Procedure: 04/07/20 Preoperative Diagnosis: Morbid obesity, GERD Postoperative Diagnosis: Antral gastritis Procedure(s) Performed: EGD Anesthesia: MAC Surgeon: Hal Pate Pathology: none sent Condition: stable Disposition: PACU Description of Procedure: The patient's placed on the endoscopy table in the lateral position. She received IV sedation. The gastroscope placed oropharynx and passed into the oropharynx and the esophagus and stomach and through the pylorus and the first second portion of the duodenum. This appeared normal. The scope was then brought back and the antrum this was mildly inflamed. A biopsies performed. The scope was retroflexed the remainder some appeared normal. There is no significant hiatal hernia. The GE junction was at 40 cm. The distal esophagus appeared normal. The proximal esophagus appeared normal. Scope withdrawn for patient.
[2020-04-07 12:37] VITALS: BP 102/63; PULSE 61; RESP 16
== END ==
LOC: ORWHC2ENDO 10:27
PROVIDERS: ATTEND Surgery
DX: K29.50 Unspecified chronic gastritis without bleeding (principal); E66.01 Morbid (severe) obesity due to excess calories; Z68.42 Body mass index [BMI] 45.0-49.9, adult; H66.90 Otitis media, unspecified, unspecified ear; Z90.710 Acquired absence of both cervix and uterus; Z98.890 Other specified postprocedural states; Z87.891 Personal history of nicotine dependence; Z79.890 Hormone replacement therapy; Z79.899 Other long term (current) drug therapy; Z88.6 Allergy status to analgesic agent
CPT/HCPCS: 43239; 88305; J2250; J2001; J3010; J2704

== ENCOUNTER → 2020-04-17 | Outpatient (CLI) | payer MEDICARE, OTHER ==
[2020-04-17 12:24] VITALS: BMI 45.0
== END | disposition home or self-care (01) ==
LOC: BARWHC3 08:45
PROVIDERS: ATTEND Surgery
DX: E66.01 Morbid (severe) obesity due to excess calories (principal); Z71.3 Dietary counseling and surveillance; Z68.42 Body mass index [BMI] 45.0-49.9, adult
CPT/HCPCS: 97804

== ENCOUNTER → 2020-05-08 | Outpatient (CLI) | payer MEDICARE, OTHER ==
--- NOTE | 2020-06-13 11:40 | P.HPBAR ---
Bariatric H&P - History & Physicial H&P Date: 05/08/20 History & Physicial: Visit/CC: pre-surgical Patient initial contact: Initial weight: Initial weight in pounds: Height: 5 ft 5 in Initial BMI: Last weight: Current weight: 122.924 kg Current weight in pounds: Current BMI: [place] body weight (based on NIH guidelines): Excess body weight loss: The patient is a 40 year-old F who presents for Bariatric Assessment. Patient presents today for presurgical consultation. She is morbidly obese. Her BMI is 45. She's had lifetime problems obesity. Past Medical History Past Medical History: No Reported History Additional Past Medical History / Comment(s): Chronic Otitis Media History of Any Multi-Drug Resistant Organisms: None Reported Past Surgical History: Bladder Surgery, Ear Surgery, Hysterectomy, Tonsillectomy Past Anesthesia/Blood Transfusion Reactions: No Reported Reaction Past Psychological History: Anxiety, Bipolar, Depression, PTSD, Schizophrenia Additional Psychological History / Comment(s): Borderline Personality Disorder Smoking Status: Current some day smoker Past Alcohol Use History: Abuse Additional Past Alcohol Use History / Comment(s): Patient reports she was sober from alcohol use since 02/09/18 but relasped 12/26/18 and has drank twice since then. Past Drug Use History: Cocaine, Marijuana Additional Drug Use History / Comment(s): smokes 1/2 joint a night for sleep; aware to stop 24 hours prior to surgery - Past Family History Mother Family Medical History: No Reported History Surgical - Exam Vital Signs Temp Pulse Resp BP 98.1 F 64 18 140/62 05/08/20 13:33 05/08/20 13:33 05/08/20 13:33 05/08/20 13:33 - General well developed, well nourished, no distress - Eyes PERRL - ENT normal pinna - Neck no masses - Respiratory normal expansion - Cardiovascular Rhythm: regular - Abdomen Abdomen: soft, non tender Bariatric Assessment & Plan Plan: Morbid obesity, BMI 45. Patient be scheduled for EGD. She has an excellent understanding sleeve gastrectomy... Bariatric Checklist Checklist: Plan: Checklist: EGD: 1. Hiatal hernia: 2. H. Pylori: HgbA1c: Vitamin D: Smoking: Light tobacco smoker Primary care physician referral: Dr. Ross Psychiatry clearance: Cardiology clearance: Sleep study: Diet journal: VTE risk score: VTE risk level: Rehab needs at discharge:
== END | disposition home or self-care (01) ==
CPT/HCPCS: 99211

== ENCOUNTER → 2020-06-12 | Outpatient (CLI) | payer MEDICARE, OTHER ==
[2020-06-12 14:53] VITALS: BP 125/60; PULSE 66; RESP 18; TEMP 98.9; BMI 45.9
--- NOTE | 2020-06-13 10:39 | P.HPBAR ---
Bariatric H&P - History & Physicial H&P Date: 06/13/20 History & Physicial: Visit/CC: pre-surgical visit Patient initial contact: Initial weight: Initial weight in pounds: Height: 5 ft 5 in Initial BMI: Last weight: Current weight: 125.191 kg Current weight in pounds: 276.00 Current BMI: 45.9 [place] body weight (based on NIH guidelines): 56.699 kg Excess body weight loss: The patient is a 40 year-old F who presents for Bariatric Assessment. Patient presents today for initial bariatric consultation. She is interested sleeve gastrectomy. Past Medical History Past Medical History: No Reported History Additional Past Medical History / Comment(s): Chronic Otitis Media History of Any Multi-Drug Resistant Organisms: None Reported Past Surgical History: Bladder Surgery, Ear Surgery, Hysterectomy, Tonsillectomy Past Anesthesia/Blood Transfusion Reactions: No Reported Reaction Past Psychological History: Anxiety, Bipolar, Depression, PTSD, Schizophrenia Additional Psychological History / Comment(s): Borderline Personality Disorder Smoking Status: Current some day smoker Past Alcohol Use History: Abuse Additional Past Alcohol Use History / Comment(s): Patient reports she was sober from alcohol use since 02/09/18 but relasped 12/26/18 and has drank twice since then. Past Drug Use History: Cocaine, Marijuana Additional Drug Use History / Comment(s): smokes 1/2 joint a night for sleep; aware to stop 24 hours prior to surgery - Past Family History Mother Family Medical History: No Reported History Surgical - Exam Vital Signs Temp Pulse Resp BP 98.9 F 66 18 125/60 06/12/20 14:47 06/12/20 14:47 06/12/20 14:47 06/12/20 14:47 - General well developed, well nourished, no distress - Eyes PERRL - ENT normal pinna - Neck no masses - Respiratory normal expansion - Cardiovascular Rhythm: regular - Abdomen Abdomen: soft Bariatric Assessment & Plan Plan: Morbid obesity, BMI 46. Patient has an excellent Understanding sleeve gastrectomy. He went over the risks and benefits of procedure. Patient be scheduled for EGD. Bariatric Checklist Checklist: Plan: Checklist: EGD: 1. Hiatal hernia: 2. H. Pylori: HgbA1c: Vitamin D: Smoking: Light tobacco smoker Primary care physician referral: Dr. Ross Psychiatry clearance: Cardiology clearance: Sleep study: Diet journal: VTE risk score: VTE risk level: Rehab needs at discharge:
== END | disposition home or self-care (01) ==
LOC: BARWHC3 14:12
PROVIDERS: ATTEND Surgery
DX: Z01.818 Encounter for other preprocedural examination (principal); F17.200 Nicotine dependence, unspecified, uncomplicated
CPT/HCPCS: 99211

== ENCOUNTER 2020-08-07 07:30 | Inpatient (IN) | payer MEDICARE, OTHER ==
[~2020-08-07 07:30] MED LIST changes: +DEXAMETHASONE SOD PHOSPHATE 4 MG/ML 1 ML VIAL IV ONE; +ENOXAPARIN 40 MG/0.4 ML SYRINGE SQ PRN; -LACTATED RINGERS 1,000 ML IV SCH; +LIDOCAINE 1% (10MG/ML) FOR IV START INTRADERMA PRN; -LIDOCAINE 1% INJ 10MG/ML (20 ML MDV) ONE; +MIDAZOLAM 2 MG/2 ML VIAL IV PRN; -MIDAZOLAM 2 MG/2 ML VIAL ONE; +ONDANSETRON 4 MG/2 ML VIAL IVP ONE; -PROPOFOL 10 MG/ML 20 ML VIAL IV ONE; +ceFAZolin 3 GM in SODIUM CHLORIDE 0.9% 100 ML IVPB PRN; -fentaNYL (PF) 50 MCG/ML 2 ML AMP ONE
--- NOTE | 2020-08-07 09:45 | P.GSHP ---
History of Present Illness H&P Date: 08/07/20 Chief Complaint: Morbid obesity This is a 40-year-old female who presents today for sleeve gastrectomy. Patient morbid obesity. Her BMI is 46. She is aware the risks of surgery including gastric sleeve perforation bleeding and scarring. Past Medical History Past Medical History: Osteoarthritis (OA), Sleep Apnea/CPAP/BIPAP Additional Past Medical History / Comment(s): Chronic Otitis Media. History of Any Multi-Drug Resistant Organisms: None Reported Past Surgical History: Bladder Surgery, Ear Surgery, Hysterectomy, Tonsillectomy Past Anesthesia/Blood Transfusion Reactions: No Reported Reaction Past Psychological History: Anxiety, Bipolar, Depression, PTSD, Schizophrenia Additional Psychological History / Comment(s): Borderline Personality Disorder. Smoking Status: Former smoker Past Alcohol Use History: Abuse Additional Past Alcohol Use History / Comment(s): Quit smoking over one month ago. Smoked sporadically prior to that. Patient reports she was sober from alcohol use since 02/09/18 but relasped 12/26/18 and has drank twice since then. Denies current alcohol use. Past Drug Use History: Cocaine, Marijuana Additional Drug Use History / Comment(s): Smokes 1/2 a joint at night for sleep. States has not used recently and will not be using proior to surgery. - Past Family History Mother Family Medical History: No Reported History Medications and Allergies Home Medications Medication Instructions Recorded Confirmed Type Aripiprazole Lauroxil [[place]] 441 mg IM DIRECTED 03/20/20 07/31/20 History Divalproex Sodium [Depakote] 1,000 mg PO HS 03/20/20 07/31/20 History QUEtiapine [SEROquel] 200 mg PO HS 03/20/20 07/31/20 History Cholecalciferol [Vitamin D3 (25 25 mcg PO DAILY 07/31/20 07/31/20 History Mcg = 1000 Iu)] Ferrous Sulfate [Iron] 325 mg PO DAILY 07/31/20 07/31/20 History Multivitamins, Thera [Multivitamin 1 tab PO DAILY 07/31/20 07/31/20 History (formulary)] [place]-3 Fatty Acids/Fish Oil [Fish 1 each PO DAILY 07/31/20 07/31/20 History Oil 1,000 mg Softgel] Vitamin E (Unknown Dose) 1 tab PO DAILY 07/31/20 07/31/20 History buPROPion [Wellbutrin] 200 mg PO QAM 07/31/20 07/31/20 History Allergies Allergy/AdvReac Type Severity Reaction Status Date / Time naproxen [From Naprosyn] Allergy Anaphylaxis Verified 07/31/20 15:38 Surgical - Exam BMI 46 - General well developed, well nourished, no distress - Eyes PERRL - ENT normal pinna - Neck no masses - Respiratory normal expansion - Cardiovascular Rhythm: regular - Abdomen Abdomen: soft, non tender Assessment and Plan Assessment: Morbid obesity. We'll perform laparoscopic sleeve gastrectomy
[2020-08-07] MEDS ORDERED: LIDOCAINE 1% INJ 10MG/ML (20 ML MDV) ONE (10:05)
[2020-08-07] MEDS ORDERED: PROPOFOL 10 MG/ML 20 ML VIAL IV ONE (10:05)
[2020-08-07] MEDS ORDERED: METOPROLOL TARTRATE 5 MG/5 ML VIAL IVP ONE (10:05)
[2020-08-07] MEDS ORDERED: ROCURONIUM 10 MG/ML (5 ML VIAL) IV ONE (10:05)
[2020-08-07] MEDS ORDERED: GLYCOPYRROLATE 0.2 MG/ML 2 ML VIAL ONE (10:05)
[2020-08-07] MEDS ORDERED: KETAMINE 10 MG/ML 20 ML VIAL ONE (10:05)
[2020-08-07] MEDS ORDERED: NEOSTIGMINE 1 MG/ML 10 ML VIAL ONE (10:05)
[2020-08-07] MEDS ORDERED: diphenhydrAMINE 50 MG/ML 1 ML VIAL ONE (10:05)
[2020-08-07] MEDS ORDERED: SUCCINYLCHOLINE CHLORIDE 100 MG/5 ML SYR IV ONE (10:05)
[2020-08-07] MEDS ORDERED: MIDAZOLAM 2 MG/2 ML VIAL ONE (10:05)
[2020-08-07] MEDS ORDERED: ACETAMINOPHEN IV (For NPO) 1,000 MG/100 ML VIAL ONE (10:05)
[2020-08-07] MEDS: LACTATED RINGERS 1,000 ML IV SCH (10:06)
[2020-08-07] MEDS ORDERED: BUPIVACAIN-EPI 0.5%-1:200,000 30 ML VIAL SQ ONE ×2 (10:28→10:54)
[2020-08-07] MEDS ORDERED: NALOXONE 0.4 MG/ML 1 ML VIAL IV PRN (11:10)
[2020-08-07] MEDS ORDERED: diphenhydrAMINE 50 MG/ML 1 ML VIAL IVP PRN (11:10)
[2020-08-07] MEDS ORDERED: HYOSCYAMINE ORAL DROPS 1.875 MG/15 ML BOTTLE PO PRN (11:10)
--- NOTE | 2020-08-07 11:13 | P.OP ---
Date of Procedure: 08/07/20 Preoperative Diagnosis: Morbid obesity, BMI 46 Postoperative Diagnosis: Morbid obesity, BMI 46 Procedure(s) Performed: Laparoscopic Sleeve gastrectomy Anesthesia: CRISSY Surgeon: Hal Pate Estimated Blood Loss (ml): 10 Pathology: other (Stomach) Condition: stable Disposition: PACU Description of Procedure: The patient was placed on the operating room table in the supine position. She received general anesthesia and then was placed in dorsal lithotomy position. Her abdomen was prepped and draped in sterile fashion. The skin incision sites were anesthetized 1% local Xylocaine. And then the skin was incised with an 11 blade in the left lateral position. Using a blade less trocar under direct visualization the peritoneal cavity was entered. The abdomen was insufflated and then a 5 mm laparoscope was placed into the peritoneal cavity. A 5 mm trocar was placed in the right epigastric, and right lateral position. A 15 mm trocar was placed in the supra-umbilical position and another 5 mm trocar was placed in the left lateral position. The left lateral lobe of the liver was retracted. The stomach was visualized. The greater curvature of the stomach was then dissected using the Harmonic scissors. The dissection occurred approximately 5 cm from the pylorus to the level of the left yanelis. There was no hiatal hernia seen. At this point a 40-Yoruba bougie dilator was placed the oropharynx and passed into the esophagus and into the stomach by the RN UNIT MANAGER. The sleeve gastrectomy was performed by using the powered echelon stapler with a seam guard buttress material. Sequential firings of the stapler were performed. The gastric remnant was then brought out through the 15 mm trocar site. The dilator was withdrawn. And a orogastric tube was replaced into the stomach. The stomach was insufflated with 200 mL of methylene blue normal saline. There was no evidence of extravasation. The abdomen was irrigated there is no bleeding seen. The Shailesh-Frankie device was used to close the 15 mm trocar with 0 Vicryl. Skin was closed with interrupted 3-0 Monocryl sutures once the trochars withdrawn. Dermabond dressing was applied. Patient was sent to recovery in stable condition.
[2020-08-07] MEDS: HYDROmorphone 0.5 MG/0.5 ML SYRINGE IVP PRN ×4 (11:40→12:40)
[2020-08-07] MEDS ORDERED: ONDANSETRON 4 MG/2 ML VIAL IVP ONE (12:29)
[2020-08-07] MEDS: 0.9% NACL WITH KCL 20 MEQ/L 1,000 ML IV SCH ×2 (13:43→17:02)
[2020-08-07] MEDS: ALBUTEROL NEBULIZED 2.5 MG/3 ML INHALATION SCH ×3 (13:49→21:01)
[2020-08-07] MEDS: ONDANSETRON 4 MG/2 ML VIAL IVP PRN ×2 (14:09→21:10)
[2020-08-07] MEDS: HYDROmorphone 1 MG/ML 1 ML SYRINGE IVP PRN ×2 (14:10→19:39)
--- NOTE | 2020-08-07 16:50 | P.CONS ---
History of Present Illness - Reason for Consult Schizophrenia - History of Present Illness Patient wasn't a 40-year-old female admitted for laparoscopic sleeve gastrectomy sepsis and underwent surgery patient denied any nausea was complaining of discomfort in the surgical site area patient had any fever chills nausea vomiting. did not pass gas yet did not move her bowel yet. Does have history of sleep apnea and does use CPAP machine. Review of Systems REVIEW OF SYSTEMS: CONSTITUTIONAL: No fever, no malaise, no fatigue. HEENT: No recent visual problems or hearing problems. Denied any sore throat. CARDIOVASCULAR: No chest pain, orthopnea, PND, no palpitations, no syncope. PULMONARY: No shortness of breath, no cough, no hemoptysis. GASTROINTESTINAL: Mentioned in HPI NEUROLOGICAL: No headaches, no weakness, no numbness. HEMATOLOGICAL: Denies any bleeding or petechiae. GENITOURINARY: Denies any burning micturition, frequency, or urgency. MUSCULOSKELETAL/RHEUMATOLOGICAL: Denies any joint pain, swelling, or any muscle pain. ENDOCRINE: Denies any polyuria or polydipsia. The rest of the 14-point review of systems is negative. Past Medical History Past Medical History: Osteoarthritis (OA), Sleep Apnea/CPAP/BIPAP Additional Past Medical History / Comment(s): Chronic Otitis Media. History of Any Multi-Drug Resistant Organisms: None Reported Past Surgical History: Bladder Surgery, Ear Surgery, Hysterectomy, Tonsillectomy Past Anesthesia/Blood Transfusion Reactions: No Reported Reaction Past Psychological History: Anxiety, Bipolar, Depression, PTSD, Schizophrenia Additional Psychological History / Comment(s): Borderline Personality Disorder. Smoking Status: Former smoker Past Alcohol Use History: Abuse Additional Past Alcohol Use History / Comment(s): Quit smoking over one month ago. Smoked sporadically prior to that. Patient reports she was sober from alcohol use since 02/09/18 but relasped 12/26/18 and has drank twice since then. Denies current alcohol use. Past Drug Use History: Cocaine, Marijuana Additional Drug Use History / Comment(s): Smokes 1/2 a joint at night for sleep. States has not used recently and will not be using proior to surgery. - Past Family History Mother Family Medical History: No Reported History Medications and Allergies Home Medications Medication Instructions Recorded Confirmed Type Aripiprazole Lauroxil [Aristada] 441 mg IM DIRECTED 03/20/20 08/07/20 History Divalproex Sodium [Depakote] 1,000 mg PO HS 03/20/20 08/07/20 History QUEtiapine [SEROquel] 200 mg PO HS 03/20/20 08/07/20 History Cholecalciferol [Vitamin D3 (25 25 mcg PO DAILY 07/31/20 08/07/20 History Mcg = 1000 Iu)] Ferrous Sulfate [Iron] 325 mg PO DAILY 07/31/20 08/07/20 History Multivitamins, Thera [Multivitamin 1 tab PO DAILY 07/31/20 08/07/20 History (formulary)] [place]-3 Fatty Acids/Fish Oil [Fish 1 each PO DAILY 07/31/20 08/07/20 History Oil 1,000 mg Softgel] Vitamin E (Unknown Dose) 1 tab PO DAILY 07/31/20 08/07/20 History buPROPion [Wellbutrin] 200 mg PO QAM 07/31/20 08/07/20 History Allergies Allergy/AdvReac Type Severity Reaction Status Date / Time naproxen [From Naprosyn] Allergy Anaphylaxis Verified 08/07/20 09:44 Physical Exam Vitals: Vital Signs Temp Pulse Resp BP Pulse Ox 08/07/20 13:55 99 08/07/20 13:15 97.7 F 57 L 19 166/94 93 L 08/07/20 13:00 57 L 12 144/72 97 08/07/20 12:45 62 12 142/67 96 08/07/20 12:30 51 L 12 147/71 95 08/07/20 12:15 54 L 12 149/78 95 08/07/20 12:01 52 L 12 150/72 95 08/07/20 11:45 57 L 12 150/70 95 08/07/20 11:30 53 L 12 149/64 93 L 08/07/20 11:16 97.1 F L 54 L 12 138/65 98 08/07/20 09:58 97.2 F L 70 18 128/61 95 Intake and Output 08/07/20 08/07/20 08/07/20 06:59 14:59 22:59 Intake Total 700 Output Total 5 Balance 695 Intake: IV 700 Output: Estimated Blood Loss 5 Other: Weight 122.7 kg PHYSICAL EXAMINATION: GENERAL: The patient is alert and oriented x3, not in any acute distress. Obese HEENT: Pupils are round and equally reacting to light. EOMI. No scleral icterus. No conjunctival pallor. Normocephalic, atraumatic. No pharyngeal erythema. No thyromegaly. CARDIOVASCULAR: S1 and S2 present. No murmurs, rubs, or gallops. PULMONARY: Chest is clear to auscultation, no wheezing or crackles. ABDOMEN: Soft, surgical site areas appear to be clean and patient does have bowel sounds but sluggish MUSCULOSKELETAL: No joint swelling or deformity. EXTREMITIES: No cyanosis, clubbing, or pedal edema. NEUROLOGICAL: Gross neurological examination did not reveal any focal deficits. SKIN: No rashes. Assessment and Plan Plan: 4 obesity: Status post laparoscopic sleeve gastrectomy pain management DVT prophylaxis as per primary service -Sleep apnea patient will continue her CPAP machine -Bipolar disorder/PTSD: Patient will be resumed on her home medications for this -History of smoking and patient quit smoking about 4 weeks ago for surgery.
--- NOTE | 2020-08-07 17:00 | P.CONS ---
History of Present Illness - Reason for Consult Consult date: 08/07/20 Medical management - Chief Complaint nausea - History of Present Illness 40 years old female with past medical history of osteoarthritis, sleep apnea, history of anxiety, depression, PTSD, schizophrenia, borderline personality disorder, ex-smoker admitted for elective sleeve gastrectomy with Dr. Pate . Patient examined postoperatively. Patient endorses nausea but denies any vomiting, chest pain, breathing difficulty, abdominal distention. She does have mild pain involving the upper abdomen and endorses tiredness. Patient is sleepy on examination. On assessment of patient's white as patient has a temp of 97.7 pulse 57 and respiratory rate 19 blood pressure 166/94 oxygen saturation 93% on room air. No labs available for assessment. I will obtain BMP as patient has persistent bradycardia and high blood pressure. Patient would benefit from an antihypertensive medication on discharge Review of Systems Constitutional: Denies chills, Denies fever, endorses lethargy, Denies poor appetite, Denies weakness, Denies weight loss Eyes: denies decreased vision, denies diplopia, denies discharge, denies pain Ears: deny: decreased hearing Ears, nose, mouth and throat: Denies dental pain, Denies headache, Denies nasal discharge, Denies nose pain Cardiovascular: Denies chest pain, Denies decreased exercise tolerance, Denies edema, Denies high blood pressure, Denies irregular heart beat, Denies palpitations, Denies paroxysmal nocturnal dyspnea, Denies rapid heart beat, Denies shortness of breath Respiratory: Denies congestion, Denies cough, Denies cough with sputum, Denies dyspnea, Denies home oxygen, Denies wheezing Gastrointestinal: Endorses abdominal pain, Denies change in bowel habits, Denies coffee ground emesis, Denies early satiety, Denies excessive gas, Denies heartburn, Denies hematemesis, Denies hematochezia, Denies loss of appetite, endorses nausea, Denies vomiting Genitourinary: Denies dysuria, Denies flank pain, Denies kidney stones, Denies menorrhagia, Denies urgency, Denies urinary frequency Musculoskeletal: Denies gait dysfunction, Denies limitation of motion, Denies morning stiffness, Denies muscle cramps Integumentary: Denies rash, Denies wounds, Denies brittle nails, Denies change in hair/nails, Denies darkening of skin Neurological: Denies balance difficulties, Denies change in speech, Denies double vision, Denies gait dysfunction, Denies loss of vision, Denies motor disturbance, Denies numbness, Denies paralysis, Denies paresthesias, Denies seizures Psychiatric: Denies anxiety, Denies depression Endocrine: Denies excessive sweating, Denies excessive thirst, Denies high blood sugars, Denies palpitations Hematologic/Lymphatic: Denies easy bruising, Denies lymphadenopathy Past Medical History Past Medical History: Osteoarthritis (OA), Sleep Apnea/CPAP/BIPAP Additional Past Medical History / Comment(s): Chronic Otitis Media. History of Any Multi-Drug Resistant Organisms: None Reported Past Surgical History: Bladder Surgery, Ear Surgery, Hysterectomy, Tonsillectomy Past Anesthesia/Blood Transfusion Reactions: No Reported Reaction Past Psychological History: Anxiety, Bipolar, Depression, PTSD, Schizophrenia Additional Psychological History / Comment(s): Borderline Personality Disorder. Smoking Status: Former smoker Past Alcohol Use History: Abuse Additional Past Alcohol Use History / Comment(s): Quit smoking over one month ago. Smoked sporadically prior to that. Patient reports she was sober from alcohol use since 02/09/18 but relasped 12/26/18 and has drank twice since then. Denies current alcohol use. Past Drug Use History: Cocaine, Marijuana Additional Drug Use History / Comment(s): Smokes 1/2 a joint at night for sleep. States has not used recently and will not be using proior to surgery. - Past Family History Mother Family Medical History: No Reported History Medications and Allergies Home Medications Medication Instructions Recorded Confirmed Type Aripiprazole Lauroxil [Aristada] 441 mg IM DIRECTED 03/20/20 08/07/20 History Divalproex Sodium [Depakote] 1,000 mg PO HS 03/20/20 08/07/20 History QUEtiapine [SEROquel] 200 mg PO HS 03/20/20 08/07/20 History Cholecalciferol [Vitamin D3 (25 25 mcg PO DAILY 07/31/20 08/07/20 History Mcg = 1000 Iu)] Ferrous Sulfate [Iron] 325 mg PO DAILY 07/31/20 08/07/20 History Multivitamins, Thera [Multivitamin 1 tab PO DAILY 07/31/20 08/07/20 History (formulary)] [place]-3 Fatty Acids/Fish Oil [Fish 1 each PO DAILY 07/31/20 08/07/20 History Oil 1,000 mg Softgel] Vitamin E (Unknown Dose) 1 tab PO DAILY 07/31/20 08/07/20 History buPROPion [Wellbutrin] 200 mg PO QAM 07/31/20 08/07/20 History Allergies Allergy/AdvReac Type Severity Reaction Status Date / Time naproxen [From Naprosyn] Allergy Anaphylaxis Verified 08/07/20 09:44 Physical Exam Vitals: Vital Signs Temp Pulse Resp BP Pulse Ox 08/07/20 13:55 99 08/07/20 13:15 97.7 F 57 L 19 166/94 93 L 08/07/20 13:00 57 L 12 144/72 97 08/07/20 12:45 62 12 142/67 96 08/07/20 12:30 51 L 12 147/71 95 08/07/20 12:15 54 L 12 149/78 95 08/07/20 12:01 52 L 12 150/72 95 08/07/20 11:45 57 L 12 150/70 95 08/07/20 11:30 53 L 12 149/64 93 L 08/07/20 11:16 97.1 F L 54 L 12 138/65 98 08/07/20 09:58 97.2 F L 70 18 128/61 95 Intake and Output 08/07/20 08/07/20 08/07/20 06:59 14:59 22:59 Intake Total 700 Output Total 5 Balance 695 Intake: IV 700 Output: Estimated Blood Loss 5 Other: Weight 122.7 kg - Constitutional General appearance: cooperative, no acute distress, obese appears drowsy - EENT Eyes: anicteric sclerae, PERRLA, normal appearance no nystagmus ENT: hearing grossly normal - Neck Neck: no lymphadenopathy, normal ROM, no other, no rigidity, no stridor, no thyromegaly - Respiratory Respiratory: bilateral: CTA, negative: diminished, dullness, rales, rhonchi - Cardiovascular Rhythm: regular Heart sounds: normal: S1, S2 Abnormal Heart Sounds: no systolic murmur, no diastolic murmur, no rub, no S3 Gallop, no S4 Gallop, no click, no other - Gastrointestinal General gastrointestinal: normal bowel sounds, soft surgical sites appear clean without any drainage, no rebound tenderness - Integumentary Integumentary: no rash - Neurologic Neurologic: CNII-XII intact - Musculoskeletal Musculoskeletal: gait normal, strength equal bilaterally - Psychiatric Psychiatric: A&O x's 3, appropriate affect Assessment and Plan Plan: #1 morbid obesity Postoperative day 0 sleeve gastrectomy. Continue Dilaudid 1 mg every 3 hours for pain control. Incentive spirometer ordered for pulmonary prophylaxis.. Encourage ambulation to prevent DVT. Lovenox subcu every 12 #2 history for bipolar disorder continue Depakote 1000 daily at bedtime continue Wellbutrin #3 schizophrenia continue aripiprazole continue Seroquel 200 at bedtime. Watch for serotonin syndrome #4 sinus bradycardia. Obtain BMP to check for electrolytes. #5 high blood pressure with no diagnosis of hypertension in the past. Obtain BMP. We will start patient on lisinopril 5 mg daily. #6 GI prophylaxis continue pantoprazole 40 mg by mouth daily continue simethicone drops 40 mg by mouth every 6 when necessary #7 DVT prophylaxis with Lovenox 40 every 12 #8 CODE STATUS full code
[2020-08-07 17:57] LABS: African American GFR (CKD) >90 (>60 ml/min/1.73 sqM); Anion Gap 10 mmol/L; Blood Urea Nitrogen 21 mg/dL (7-17); Calcium 8.7 mg/dL (8.4-10.2); Carbon Dioxide 19 mmol/L (22-30); Chloride 108 mmol/L (98-107); Glucose 142 mg/dL (74-99); Non-African American GFR(CKD) 83 (>60 ml/min/1.73 sqM); Sodium 137 mmol/L (137-145)
[2020-08-07 18:04] LABS: Potassium 5.3 mmol/L (3.5-5.1)
[2020-08-07] MEDS: ceFAZolin 3 GM in SODIUM CHLORIDE 0.9% 100 ML IVPB SCH (20:17)
[2020-08-07] MEDS: SIMETHICONE 40 MG/0.6 ML DROPS 2,000 MG/30 ML BOTTLE PO PRN (20:18)
[2020-08-07] MEDS ORDERED: QUEtiapine 200 MG TAB PO SCH (21:00)
[2020-08-07] MEDS ORDERED: DIVALPROEX 500 MG TABLET.DR PO SCH (21:00)
[2020-08-07] MEDS: ENOXAPARIN 40 MG/0.4 ML SYRINGE SQ SCH (23:17)
[2020-08-08] MEDS: 0.9% NACL WITH KCL 20 MEQ/L 1,000 ML IV SCH (02:47)
[2020-08-08] MEDS: ceFAZolin 3 GM in SODIUM CHLORIDE 0.9% 100 ML IVPB SCH (02:47)
[2020-08-08] MEDS: LACTATED RINGERS 1,000 ML IV SCH (02:55)
[2020-08-08] MEDS: SIMETHICONE 40 MG/0.6 ML DROPS 2,000 MG/30 ML BOTTLE PO PRN (03:07)
[2020-08-08] MEDS: ONDANSETRON 4 MG/2 ML VIAL IVP PRN (06:05)
[2020-08-08] MEDS: ALBUTEROL NEBULIZED 2.5 MG/3 ML INHALATION SCH ×3 (07:11→15:27)
[2020-08-08] MEDS ORDERED: 1: MVI, ADULT NO.4 WITH VIT K 10 ML, THIAMINE 100 MG, FOLIC ACID 1 MG, POTASSIUM CHLORID IV SCH ×6 (08:00)
[2020-08-08 08:01] VITALS: RESP 18; TEMP 98.4
[2020-08-08] MEDS ORDERED: METOCLOPRAMIDE 5 MG/ML 2 ML VIAL IVP PRN (08:26)
[2020-08-08] MEDS ORDERED: ACETAMINOPHEN IV (For NPO) 1,000 MG in EMPTY BAG 1 BAG IVPB SCH (08:30)
[2020-08-08 08:35] LABS: Basophils # (A) 0.01 X 10*3/uL (0.00-0.10); Basophils % (A) 0.1 %; Eosinophils # (A) 0 X 10*3/uL (0.04-0.35); Eosinophils % (A) 0 %; HCT 38.2 % (37.2-46.3); HGB 12.1 g/dL (12.0-15.0); Lymphocytes # (A) 1.56 X 10*3/uL (0.90-5.00); Lymphocytes % (A) 13.9 %; MCH 29.6 pg (27.0-32.0); MCHC 31.7 g/dL (32.0-37.0); MCV 93.4 fL (80.0-97.0); Mean Platelet Volume 11.2 fL (9.5-12.2); Monocytes # (A) 0.64 X 10*3/uL (0.20-1.00); Monocytes % (A) 5.7 %; Neutrophils # (A) 8.96 X 10*3/uL (1.80-7.70); Platelet Count 213 X 10*3/uL (140-440); RBC 4.09 X 10*6/uL (4.10-5.20); RDW 14.4 % (11.5-14.5)
[2020-08-08] MEDS ORDERED: CHOLECALCIFEROL 25 MCG (1000 IU) TABLET PO SCH (09:00)
[2020-08-08] MEDS ORDERED: buPROPion 100 MG TAB PO SCH (09:00)
[2020-08-08] MEDS ORDERED: PANTOPRAZOLE 40 MG/10 ML VIAL IV SCH (09:00)
[2020-08-08] MEDS ORDERED: lisinopriL 5 MG TAB PO SCH (09:00)
[2020-08-08 09:38] LABS: Anion Gap 8.5 mmol/L (4.00-12.00); Calcium 8.6 mg/dL (8.7-10.3); Carbon Dioxide 22.5 mmol/L (21.6-31.8); Magnesium 1.8 mg/dL (1.5-2.4); Non-African American GFR(CKD) 79.4 (60.0-200.0); Potassium 4.2 mmol/L (3.5-5.5)
[2020-08-08 11:54] VITALS: BMI 45.0
--- NOTE | 2020-08-08 12:28 | FL ---
EXAMINATION TYPE: FL UGI DATE OF EXAM: 08/08/2020 LIMITED UGI: CLINICAL HISTORY: MMorbid obesity status post gastric sleeve surgery yesterday. TECHNIQUE: Limited esophagram is performed utilizing 20 oz of contrast. A total of 12 seconds of flu oroscopic time was utilized during procedure and 52 images obtained. COMPARISON: None. FINDINGS: The patient swallowed contrast without difficulty or delay. Esophageal peristalsis and mo tility are within normal limits. There is good flow of contrast along the diaphragmatic hiatus into proximal stomach and subsequent flow through proximal anastomosis into gastric sleeve. There is good flow from distal sleeve and anastomosis into pylorus and duodenal sweep. Patient remains asymptomatic . There is no evidence of contrast extravasation to suggest leak. IMPRESSION: No evidence of leak or significant obstruction status post recent gastric sleeve surgery yesterday.
[2020-08-08] MEDS ORDERED: HYDROcodone/APAP 15 ML SOLUTION PO PRN (13:03)
--- NOTE | 2020-08-08 13:09 | P.PN ---
Subjective Progress Note Date: 08/08/20 HISTORY OF PRESENT ILLNESS 40 years old female with past medical history of osteoarthritis, sleep apnea, history of anxiety, depression, PTSD, schizophrenia, borderline pe rsonality disorder, ex-smoker admitted for elective sleeve gastrectomy with Dr. Pate . Patient examined postoperatively. Patient endorses nausea but denies any vomiting, chest pain, breathing difficulty, abdominal distention. She does have mild pain involving the upper abdomen and endorses tiredness. Patient is sleepy on examination. On assessment of patient's white as patient has a temp of 97.7 pulse 57 and respiratory rate 19 blood pressure 166/94 oxygen saturation 93% on room air. No labs available for assessment. I will obtain BMP as patient has persistent bradycardia and high blood pressure. Patient would benefit from an antihypertensive medication on discharge 08/08: Patient complains of generalized abdominal pain and bloating a little bit. She states she is not passing gas. She complains of nausea and has received Zofran. She has Tylenol IV for pain. She has been afebrile, heart rate 66, blood pressure 121/78, pulse ox 96% on room air. Repeat blood work reveals D ebbie BC 11.2, hemoglobin 12.1, platelet count 213. Electrolytes normal, BUN 13 creatinine 0.9. Magnesium 1.8. Upper GI reveals no evidence of leak or significant obstruction. REVIEW OF SYSTEMS Constitutional: No fever, no chills, no night sweats. No weight change. Rep orts weakness, reports fatigue. No daytime sleepiness. EENT: No headache. No blurred vision or double vision, no loss of vision. No loss of Hearing, no ringing in the ears, no dizziness. No nasal drainage or congestion. No epistaxis. No sore throat. Lungs: No shortness of breath, cough, no sputum production. No wheezing. Cardiovascular: No chest pain, no lower extremity edema. No palpitations. No paroxysmal nocturnal dyspnea. No orthopnea. No lightheadedness or dizziness. No syncopal episodes. Abdominal: No abdominal pain. No nausea, vomiting. No diarrhea. No constipation. No bloody or tarry stools.. No loss of appetite. Genitourinary: No dysuria, increased frequency, urgency. No urinary retention. Musculoskeletal: No myalgias. No muscle weakness, no gait dysfunction, no frequent falls. No back pain. No neck pain. Integumentary: No wounds, no lesions. No rash or pruritus. No unusual bruising. No change in hair or nails. Neurologic: No aphasia. No facial droop. No change in mentation. No head injury. No headache. No paralysis. No paresthesia. Psychiatric: No depression. No anxiety. No mood swings. Endocrine: No abnormal blood sugars. No weight change. No excessive sweating or thirst. No cold intolerance. PHYSICAL EXAMINATION Gen: This is a morbidly obese 40-year-old female. She is resting and recliner and appears to be comfortable and in no acute distress. HEENT: Head is atraumatic, normocephalic. Pupils equal, round. Sclerae is anicteric. NECK: Supple. No JVD. No lymphadenopathy. No thyromegaly. LUNGS: Clear to auscultation. No wheezes or rhonchi. No intercostal retractions. HEART: Regular rate and rhythm. No murmur. ABDOMEN: Soft. Bowel sounds are present. No masses. No tenderness. EXTREMITIES: No pedal edema. No calf tenderness. NEUROLOGICAL: Patient is awake, alert and oriented x3. Cranial nerves 2 through 12 are grossly intact. ASSESSMENT AND PLAN #1 morbid obesity Postoperative day 0 sleeve gastrectomy. Continue Dilaudid 1 mg every 3 hours for pain control. Incentive spirometer ordered for pulmonary prophylaxis.. Encourage ambulation to prevent DVT. Lovenox subcu every 12 #2 history for bipolar disorder continue Depakote 1000 daily at bedtime continu e Wellbutrin #3 schizophrenia continue aripiprazole continue Seroquel 200 at bedtime. Watch for serotonin syndrome #4 sinus bradycardia. Obtain BMP to check for electrolytes. #5 high blood pressure with no diagnosis of hypertension in the past. Obtain BMP. We will start patient on lisinopril 5 mg daily. #6 GI prophylaxis continue pantoprazole 40 mg by mouth daily continue simethicone drops 40 mg by mouth every 6 when necessary #7 DVT prophylaxis with Lovenox 40 every 12 #8 CODE STATUS full code #8. KARLEY on CPAP # 9 Former smoker DISCHARGE PLAN home. Impression and plan of care have been directed as dictated by the signing physician. Tena Chowdary nurse practitioner acting as scribe for signing physician. Objective - Vital Signs Vital signs: Vital Signs Temp 98.4 F 08/08/20 08:00 Pulse 66 08/08/20 08:00 Resp 18 08/08/20 08:00 BP 121/78 08/08/20 08:00 Pulse Ox 96 08/08/20 08:00 Intake & Output 08/07/20 08/08/20 08/08/20 18:59 06:59 18:59 Intake Total 700 Output Total 5 Balance 695 Weight 122.7 kg Intake: IV 700 Output: Estimated Blood Loss 5 Other: Voiding Method Toilet # Voids 1 2 - Labs CBC & Chem 7: 08/08/20 05:32 08/08/20 05:32 Labs: Abnormal Lab Results - Last 24 Hours (Table) 08/07/20 Range/Units 17:15 Potassium 5.3 H (3.5-5.1) mmol/L Chloride 108 H (98-107) mmol/L Carbon Dioxide 19 L (22-30) mmol/L BUN 21 H (7-17) mg/dL Glucose 142 H (74-99) mg/dL
[2020-08-08] MEDS: ENOXAPARIN 40 MG/0.4 ML SYRINGE SQ SCH (13:13)
[2020-08-08] MEDS ORDERED: ACETAMINOPHEN ORAL SUSP 160 MG/5 ML CUP PO PRN (13:14)
[2020-08-08] MEDS ORDERED: ACETAMINOPHEN ORAL SUSP (PEDS) 3,840 MG/120 ML BOTTLE PO PRN (13:49)
[2020-08-08 14:54] VITALS: BP 149/90; PULSE 49
--- NOTE | 2020-08-08 15:12 | P.DS ---
Providers Date of admission: 08/07/20 09:05 Expected date of discharge: 08/08/20 Attending physician: Hal Pate Consults: 08/07/20 15:14 Consult Physician Routine Consulting Provider: Burke Cintron Consult Reason/Comments: medical management Do you want consulting provider notified?: Yes Primary care physician: [facility] Course: Discharge diagnosis 1. Morbid obesity status post laparoscopic sleeve gastrectomy 2. Leukocytosis likely steroid induced Hospital course This is a 40-year-old female with known morbid obesity with a BMI of 46. She is status post sleeve gastrectomy. She has tolerated surgery well. Her upper GI showed no evidence of leak or obstruction. She is tolerating her bariatric clear liquid diet. Her pain is controlled. She is passing gas. She is up and ambulating. She is afebrile. Patient is stable for discharge. Please refer to chart for any further details. Physician Typewriter Operator Automatic note has been reviewed by physician. Signing provider agrees with the documented findings, assessment, and plan of care. Patient Condition at Discharge: Stable Plan - Discharge Summary Discharge Rx Participant: Yes New Discharge Prescriptions: New bisacodyL [Dulcolax] 5 mg PO DAILY PRN #10 tablet. PRN Reason: Constipation Simethicone 40 mg/0.6 ml Drops [Mylicon Drops] 40 mg PO PCHS PRN #30 ml PRN Reason: Gas Omeprazole [PriLOSEC] 40 mg PO DAILY #30 capsule. Acetaminophen Tab [Tylenol Tab] 650 mg PO Q4H PRN #30 tablet PRN Reason: Pain Ondansetron Odt [Zofran Odt] 4 mg PO Q8HR PRN #9 tab PRN Reason: Nausea Continue QUEtiapine [SEROquel] 200 mg PO HS Aripiprazole Lauroxil [Aristada] 441 mg IM DIRECTED Divalproex Sodium [Depakote] 1,000 mg PO HS buPROPion [Wellbutrin] 200 mg PO QAM Cholecalciferol [Vitamin D3 (25 Mcg = 1000 Iu)] 25 mcg PO DAILY Discontinued Multivitamins, Thera [Multivitamin (formulary)] 1 tab PO DAILY [place]-3 Fatty Acids/Fish Oil [Fish Oil 1,000 mg Softgel] 1 each PO DAILY Ferrous Sulfate [Iron] 325 mg PO DAILY Vitamin E (Unknown Dose) 1 tab PO DAILY Discharge Medication List Aripiprazole Lauroxil [Aristada] 441 mg IM DIRECTED 03/20/20 [History] Divalproex Sodium [Depakote] 1,000 mg PO HS 03/20/20 [History] QUEtiapine [SEROquel] 200 mg PO HS 03/20/20 [History] Cholecalciferol [Vitamin D3 (25 Mcg = 1000 Iu)] 25 mcg PO DAILY 07/31/20 [History] buPROPion [Wellbutrin] 200 mg PO QAM 07/31/20 [History] Acetaminophen Tab [Tylenol Tab] 650 mg PO Q4H PRN #30 tablet 08/08/20 [Rx] Omeprazole [PriLOSEC] 40 mg PO DAILY #30 capsule. 08/08/20 [Rx] Ondansetron Odt [Zofran Odt] 4 mg PO Q8HR PRN #9 tab 08/08/20 [Rx] Simethicone 40 mg/0.6 ml Drops [Mylicon Drops] 40 mg PO PCHS PRN #30 ml 08/08/20 [Rx] bisacodyL [Dulcolax] 5 mg PO DAILY PRN #10 tablet. 08/08/20 [Rx] [facility]ment[facility]Ref[facility] [place] [place] [facility] - 08/11/20 10:00 am Afshin Ross MD [Primary Care Provider] - 08/14/20 10:00 am Patient Instructions/Handouts: Nutrition after Bariatric Surgery (DC), Laparoscopic Sleeve Gastrectomy (DC) Activity/Diet/Wound Care/Special Instructions: No lifting over 10 pounds You may shower. No soaking or tub baths for 2 weeks Very light activity until you are reevaluated at your follow up appointment with your surgeon No carbonated beverages or straws Cut and or crush all pills to the size smaller than a tic tac hold all vitamins for 1 week Discharge Disposition: HOME SELF-CARE
[2020-08-09] MEDS ORDERED: bisacodyL 5 MG TABLET.DR PO PRN (08:00)
[2020-09-29] MEDS ORDERED: ARIPIPRAZOLE LAUROXIL 441 MG/1.6 ML IM SCH (09:00)
== END 2020-08-08 15:41 | disposition home or self-care (01) | DRG 621 ==
LOC: 2ORMAIN 09:05 → 4SSUR 12:54
PROVIDERS: ADMIT Surgery; ATTEND Surgery
PROC: 5A09357 Assistance with Respiratory Ventilation, Less than 24 Consecutive Hours, Continuous Positive Airway Pressure (ICD-10-PCS; 2020-08-07)
PROC: 0DB64Z3 Excision of Stomach, Percutaneous Endoscopic Approach, Vertical (ICD-10-PCS; principal; 2020-08-07 10:40)
DX: E66.01 Morbid (severe) obesity due to excess calories (principal); Z68.42 Body mass index [BMI] 45.0-49.9, adult; F20.9 Schizophrenia, unspecified; F31.9 Bipolar disorder, unspecified; F60.3 Borderline personality disorder; M19.90 Unspecified osteoarthritis, unspecified site; H66.90 Otitis media, unspecified, unspecified ear; F43.10 Post-traumatic stress disorder, unspecified; G47.33 Obstructive sleep apnea (adult) (pediatric); R00.1 Bradycardia, unspecified; R03.0 Elevated blood-pressure reading, without diagnosis of hypertension; D72.829 Elevated white blood cell count, unspecified; T38.0X5A Adverse effect of glucocorticoids and synthetic analogues, initial encounter; Z71.3 Dietary counseling and surveillance; Z79.899 Other long term (current) drug therapy; Z90.710 Acquired absence of both cervix and uterus; Z98.890 Other specified postprocedural states; Z87.891 Personal history of nicotine dependence; Z88.6 Allergy status to analgesic agent
CPT/HCPCS: 74240; 80048; 80051; 82310; 82565; 83735; 84100; 84520; 85025; 88307; 94640; 94760

== ENCOUNTER → 2020-08-11 | Outpatient (CLI) | payer MEDICARE, OTHER ==
[2020-08-11 11:02] VITALS: BP 125/76; PULSE 76; TEMP 98.2; BMI 43.4
== END | disposition home or self-care (01) ==
LOC: BARWHC3 09:53
PROVIDERS: ATTEND Surgery
DX: Z48.815 Encounter for surgical aftercare following surgery on the digestive system (principal); Z98.84 Bariatric surgery status
CPT/HCPCS: 99211

== ENCOUNTER → 2020-08-11 | Outpatient (CLI) | payer MEDICARE, OTHER | END | disposition home or self-care (01) | LOC: LABWHC1 09:31 | PROVIDERS: ATTEND Surgery | DX: E83.39 Other disorders of phosphorus metabolism (principal) | CPT/HCPCS: 36415; 84100 ==

== ENCOUNTER → 2020-08-21 | Outpatient (CLI) | payer MEDICARE, OTHER ==
[2020-08-21 14:44] VITALS: BP 114/75; PULSE 78; TEMP 98.4; BMI 43.1
--- NOTE | 2020-08-21 16:15 | P.HPBAR ---
Bariatric H&P - History & Physicial H&P Date: 08/21/20 History & Physicial: Visit/CC: two week follow up Patient initial contact: Initial weight: Initial weight in pounds: Height: 5 ft 5 in Initial BMI: Last weight: Current weight: 117.48 kg Current weight in pounds: 259.00 Current BMI: 43.1 [place] body weight (based on NIH guidelines): 56.699 kg Excess body weight loss: The patient is a 40 year-old F who presents for Bariatric Assessment. Patient presents today for follow-up. She's had some complaints of GERD. Past Medical History Past Medical History: Osteoarthritis (OA), Sleep Apnea/CPAP/BIPAP Additional Past Medical History / Comment(s): Chronic Otitis Media. History of Any Multi-Drug Resistant Organisms: None Reported Past Surgical History: Bariatric Surgery, Bladder Surgery, Ear Surgery, Hysterectomy, Tonsillectomy Additional Past Surgical History / Comment(s): sleeve gastrectomy 08-07-20 Past Anesthesia/Blood Transfusion Reactions: No Reported Reaction Past Psychological History: Anxiety, Bipolar, Depression, PTSD, Schizophrenia Additional Psychological History / Comment(s): Borderline Personality Disorder. Smoking Status: Former smoker Past Alcohol Use History: Abuse Additional Past Alcohol Use History / Comment(s): Quit smoking over one month ago. Smoked sporadically prior to that. Patient reports she was sober from alcohol use since 02/09/18 but relasped 12/26/18 and has drank twice since then. Denies current alcohol use. Past Drug Use History: Cocaine, Marijuana Additional Drug Use History / Comment(s): Smokes 1/2 a joint at night for sleep. States has not used recently and will not be using proior to surgery. - Past Family History Mother Family Medical History: No Reported History Surgical - Exam Vital Signs Temp Pulse BP 98.4 F 78 114/75 08/21/20 14:41 08/21/20 14:41 08/21/20 14:41 - General well developed, well nourished, no distress - Eyes PERRL - ENT normal pinna - Neck no masses - Respiratory normal expansion - Cardiovascular Rhythm: regular - Abdomen Abdomen: soft, non tender Bariatric Assessment & Plan Plan: Status post sleeve yesterday. GERD is minimal and will be observed. Bariatric Checklist Checklist: Plan: Checklist: EGD: 1. Hiatal hernia: 2. H. Pylori: HgbA1c: Vitamin D: Smoking: Light tobacco smoker Primary care physician referral: Dr. Ross Psychiatry clearance: Cardiology clearance: Sleep study: Diet journal: VTE risk score: VTE risk level: Rehab needs at discharge:
== END ==
LOC: BARWHC3 14:00
PROVIDERS: ATTEND Surgery
DX: Z09 Encounter for follow-up examination after completed treatment for conditions other than malignant neoplasm (principal); E66.01 Morbid (severe) obesity due to excess calories; K21.9 Gastro-esophageal reflux disease without esophagitis; M19.90 Unspecified osteoarthritis, unspecified site; F17.200 Nicotine dependence, unspecified, uncomplicated; F31.9 Bipolar disorder, unspecified; F20.9 Schizophrenia, unspecified; Z98.84 Bariatric surgery status; Z79.899 Other long term (current) drug therapy
CPT/HCPCS: 97802; G0463; 99211

== ENCOUNTER → 2020-09-11 | Outpatient (CLI) | payer MEDICARE, OTHER ==
[2020-09-11 15:02] VITALS: BP 114/67; PULSE 57; TEMP 98.1; BMI 41.1
--- NOTE | 2020-10-10 12:57 | P.HPBAR ---
Bariatric H&P - History & Physicial H&P Date: 09/11/20 History & Physicial: Visit/CC: one month follow up Patient initial contact: Initial weight: Initial weight in pounds: Height: 5 ft 5 in Initial BMI: Last weight: Current weight: 112.037 kg Current weight in pounds: 247.00 Current BMI: 41.1 [place] body weight (based on NIH guidelines): 56.699 kg Excess body weight loss: The patient is a 40 year-old F who presents for Bariatric Assessment. Patient presents today for sleeve gastric a fall. She's had some mild GERD. She's also another 12 pounds. Past Medical History Past Medical History: Osteoarthritis (OA), Sleep Apnea/CPAP/BIPAP Additional Past Medical History / Comment(s): Chronic Otitis Media. History of Any Multi-Drug Resistant Organisms: None Reported Past Surgical History: Bariatric Surgery, Bladder Surgery, Ear Surgery, Hysterectomy, Tonsillectomy Additional Past Surgical History / Comment(s): sleeve gastrectomy 08-07-20 Past Anesthesia/Blood Transfusion Reactions: No Reported Reaction Past Psychological History: Anxiety, Bipolar, Depression, PTSD, Schizophrenia Additional Psychological History / Comment(s): Borderline Personality Disorder. Smoking Status: Former smoker Past Alcohol Use History: Abuse Additional Past Alcohol Use History / Comment(s): Quit smoking over one month ago. Smoked sporadically prior to that. Patient reports she was sober from alcohol use since 02/09/18 but relasped 12/26/18 and has drank twice since then. Denies current alcohol use. Past Drug Use History: Cocaine, Marijuana Additional Drug Use History / Comment(s): Smokes 1/2 a joint at night for sleep. States has not used recently and will not be using proior to surgery. - Past Family History Mother Family Medical History: No Reported History Surgical - Exam Vital Signs Temp Pulse BP 98.1 F 57 L 114/67 09/11/20 14:59 09/11/20 14:59 09/11/20 14:59 - General well developed, well nourished, no distress - Eyes PERRL - ENT normal pinna - Neck no masses - Respiratory normal expansion - Cardiovascular Rhythm: regular - Abdomen Abdomen: soft, non tender Bariatric Assessment & Plan Plan: Status post sleeve gastrectomy. Patient is quite well. Her GERD is minimal will be observed. She'll follow-up in 4 weeks. Bariatric Checklist Checklist: Plan: Checklist: EGD: 1. Hiatal hernia: 2. H. Pylori: HgbA1c: Vitamin D: Smoking: Light tobacco smoker Primary care physician referral: Dr. Ross Psychiatry clearance: Cardiology clearance: Sleep study: Diet journal: VTE risk score: VTE risk level: Rehab needs at discharge:
== END ==
LOC: BARWHC3 13:50
PROVIDERS: ATTEND Surgery
DX: E66.01 Morbid (severe) obesity due to excess calories (principal); Z68.41 Body mass index [BMI] 40.0-44.9, adult; Z71.3 Dietary counseling and surveillance; Z98.84 Bariatric surgery status; F32.9 Major depressive disorder, single episode, unspecified; Z87.891 Personal history of nicotine dependence
CPT/HCPCS: 97803; G0463; 99211

== ENCOUNTER → 2021-09-10 | Outpatient (CLI) | payer MEDICARE, OTHER ==
[2021-09-10 15:32] VITALS: BP 106/62; PULSE 52; TEMP 98.2; BMI 25.2
--- NOTE | 2021-12-07 11:04 | P.HPBAR ---
Bariatric H&P - History & Physicial H&P Date: 09/10/21 History & Physicial: Visit/CC: one year follow up Patient initial contact: Initial weight: Initial weight in pounds: Height: 5 ft 5 in Initial BMI: Last weight: Current weight: 68.946 kg Current weight in pounds: 152.00 Current BMI: 25.2 [place] body weight (based on NIH guidelines): 56.699 kg Excess body weight loss: The patient is a 41 year-old F who presents for Bariatric Assessment. Patient resents today for bariatric follow-up. She has some mild GERD. Past Medical History Past Medical History: Osteoarthritis (OA), Sleep Apnea/CPAP/BIPAP Additional Past Medical History / Comment(s): Chronic Otitis Media. History of Any Multi-Drug Resistant Organisms: None Reported Past Surgical History: Bariatric Surgery, Bladder Surgery, Ear Surgery, Hysterectomy, Tonsillectomy Additional Past Surgical History / Comment(s): sleeve gastrectomy 08-07-20 Past Anesthesia/Blood Transfusion Reactions: No Reported Reaction Past Psychological History: Anxiety, Bipolar, Depression, PTSD, Schizophrenia Additional Psychological History / Comment(s): Borderline Personality Disorder. Smoking Status: Former smoker Past Alcohol Use History: Abuse Additional Past Alcohol Use History / Comment(s): Quit smoking over one month ago. Smoked sporadically prior to that. Patient reports she was sober from alcohol use since 02/09/18 but relasped 12/26/18 and has drank twice since then. Denies current alcohol use. Past Drug Use History: Cocaine, Marijuana Additional Drug Use History / Comment(s): Smokes 1/2 a joint at night for sleep. States has not used recently and will not be using proior to surgery. - Past Family History Mother Family Medical History: No Reported History Surgical - Exam Vital Signs Temp Pulse BP 98.2 F 52 L 106/62 09/10/21 15:29 09/10/21 15:29 09/10/21 15:29 - General well developed, well nourished, no distress - Eyes PERRL - ENT normal pinna, normal nares - Neck no masses - Respiratory normal expansion - Cardiovascular Rhythm: regular - Abdomen Abdomen: soft, non tender Bariatric Assessment & Plan Plan: Patient is doing well. Her obesity is improved. She was placed on omeprazole 40 mg by mouth daily. She'll follow-up in 4 weeks. Bariatric Checklist Checklist: Plan: Checklist: EGD: 1. Hiatal hernia: 2. H. Pylori: HgbA1c: Vitamin D: Smoking: Light tobacco smoker Primary care physician referral: Dr. Ross Psychiatry clearance: Cardiology clearance: Sleep study: Diet journal: VTE risk score: VTE risk level: Rehab needs at discharge:
== END ==
LOC: BARWHC3 14:27
PROVIDERS: ATTEND Surgery
DX: Z09 Encounter for follow-up examination after completed treatment for conditions other than malignant neoplasm (principal); M19.90 Unspecified osteoarthritis, unspecified site; K21.9 Gastro-esophageal reflux disease without esophagitis; Z98.84 Bariatric surgery status; F41.9 Anxiety disorder, unspecified; F31.9 Bipolar disorder, unspecified; F43.10 Post-traumatic stress disorder, unspecified; F20.9 Schizophrenia, unspecified; F60.3 Borderline personality disorder; Z87.891 Personal history of nicotine dependence; Z88.6 Allergy status to analgesic agent
CPT/HCPCS: 99211

== ENCOUNTER → 2022-11-11 | Outpatient (CLI) | payer MEDICARE, BC ==
[2022-11-11 15:38] LABS: Basophils # (A) 0.03 X 10*3/uL (0.00-0.10); Basophils % (A) 0.5 %; Eosinophils # (A) 0.06 X 10*3/uL (0.04-0.35); HCT 45.8 % (37.2-46.3); HGB 14.2 d/dL (12.0-15.0); Lymphocytes # (A) 3.14 X 10*3/uL (0.90-5.00); Lymphocytes % (A) 51.1 %; MCH 31.1 pg (27.0-32.0); MCV 100.2 FL (80.0-97.0); Mean Platelet Volume 10.8 FL (9.5-12.2); Monocytes # (A) 0.34 X 10*3/uL (0.20-1.00); Monocytes % (A) 5.5 %; NRBC Per 100 WBC 0 X 10*3/uL (0.00-0.01); Neutrophils # (A) 2.56 X 10*3/uL (1.80-7.70); Neutrophils % (A) 41.7 %; Platelet Count 164 X 10*3/uL (140-440); RBC 4.57 X 10*6/uL (4.10-5.20); RDW 14.4 % (11.5-14.5); WBC 6.14 X 10*3/uL (4.50-10.00)
[2022-11-11 16:07] LABS: ALT 16 U/L (8-44); AST 15 U/L (13-35); Albumin 4.3 d/dL (3.8-4.9); Albumin/Globulin Ratio 1.87 Ratio (1.60-3.17); Alkaline Phosphatase 52 U/L (41-126); Blood Urea Nitrogen 15.7 mg/dL (9.0-27.0); Calcium 9.5 mg/dL (8.7-10.3); Carbon Dioxide 27.1 mmol/L (21.6-31.8); Chloride 106 mmol/L (96-109); Chol/HDL Ratio 3.49 Ratio; Globulin 2.3 d/dL (1.6-3.3); Glucose 84 mg/dL (70-110); LDL Cholesterol,Calculated 127.9 mg/dL (0.0-131.0); Potassium 4.5 mmol/L (3.5-5.5); Sodium 143 mmol/L (135-145); Total Bilirubin 0.3 mg/dL (0.3-1.2); Total Protein 6.6 d/dL (6.2-8.2)
[2022-11-11 16:08] LABS: T4, Free (Free Thyroxine) 0.95 ng/dL (0.80-1.80)
== END | disposition home or self-care (01) ==
LOC: LABWHC1 10:03
PROVIDERS: ATTEND Physician Assistant
DX: Z00.00 Encounter for general adult medical examination without abnormal findings (principal); Z98.84 Bariatric surgery status
CPT/HCPCS: 36415; 80053; 80061; 82306; 82607; 82746; 83036; 84439; 84443; 85025

== ENCOUNTER → 2023-05-07 | Outpatient (CLI) | payer MEDICARE, BC, OTHER ==
--- NOTE | 2023-05-11 18:12 | MM ---
Reason for Exam: Screening (asymptomatic). Last mammogram was performed 1 year(s) and 11 month(s) ago. Patient History: Menarche at age 11. First Full-Term at age 18. Left ovary removed at age 36. Right ovary removed at age 36. Hysterectomy at age 36. Patient has history of breast feeding. Risk Values: Ami 5 year model risk: 0.6%. NCI Lifetime model risk: 7.1%. Prior Study Comparison: 06/14/2021 Bilateral Screening Mammogram, [facility]. Tissue Density: The breast tissue is heterogeneously dense. This may lower the sensitivity of mammography. Findings: Analyzed By CAD. There is no suspicious group of microcalcifications or new suspicious mass in either breast. Overall Assessment: Negative, BI-RAD 1 Management: Screening Mammogram of both breasts in 1 year. . Patient should continue monthly self-breast exams. A clinical breast exam by your physician is recommended on an annual basis. This exam should not preclude additional follow-up of suspicious palpable abnormalities. Note on Ami scores and lifetime risk: 1. A Ami score greater than 3% is considered moderate risk. If this is the case, consider specialist referral to assess eligibility for a risk reducing agent. 2. If overall lifetime risk for the development of breast cancer is 20% or higher, the patient may qualify for future screening with alternating mammogram and breast MRI. Electronically signed and approved by: Ness Beverly M.D. Radiologist
== END | disposition home or self-care (01) ==
LOC: RADMAMWWP 16:50
PROVIDERS: ATTEND Family Medicine
DX: Z12.31 Encounter for screening mammogram for malignant neoplasm of breast (principal)
CPT/HCPCS: 77063; 77067

== ENCOUNTER → 2023-08-06 | Outpatient (CLI) | payer BC, MEDICARE, OTHER ==
--- NOTE | 2023-08-06 14:03 | US ---
EXAMINATION TYPE: US extremity nonvasc mass RT DATE OF EXAM: 08/06/2023 COMPARISON: NONE CLINICAL INDICATION: Female, 43 years old with history of R22.41 LOCALIZED SWELLING, MASS AND LUMP, R IGHT LO; Patient feels lump anterior right calf x 1 month. TECHNIQUE: Grayscale sonographic images of the palpable region in the right calf were obtained. FINDINGS: Scanned anterior right calf at patient's palpable area. No abnormalities seen at this time. IMPRESSION: No gross abnormality seen on the images provided for interpretation.
== END | disposition home or self-care (01) ==
LOC: RADUSWWP 13:31
PROVIDERS: ATTEND Family Medicine
DX: R22.41 Localized swelling, mass and lump, right lower limb (principal)

== ENCOUNTER 2023-12-19 10:10 | Emergency (ER) | payer BC, MEDICARE, OTHER ==
[2023-12-19] MEDS: MORPHINE SULFATE 4 MG/ML SYRINGE IM STA (11:07)
--- NOTE | 2023-12-19 11:22 | ED ---
Skin/Abscess/FB HPI - General Chief complaint: Skin/Abscess/Foreign Body Stated complaint: facial swelling Time Seen by Provider: 12/19/23 10:26 Source: patient, RN notes reviewed Mode of arrival: ambulatory Limitations: no limitations - History of Present Illness Initial comments: This is a 43-year-old female who presents to the emergency department for right- sided facial pain and swelling. States that this started 2 days ago. Denies any pain in her teeth. Denies any difficulty swallowing or breathing. States that the area is increasingly painful. Denies any history of similar problems in the past. Her PCP started her on Bactrim 2 days ago, however she states that she is not having any relief. Denies any fevers or chills. - Related Data Home Medications Medication Instructions Recorded Confirmed Divalproex Sodium [Depakote] 1,000 mg PO HS 03/20/20 09/11/20 QUEtiapine [SEROquel] 200 mg PO HS 03/20/20 09/11/20 Cariprazine HCl [Vraylar] 3 mg PO DAILY 09/19/21 09/19/21 Levothyroxine Sodium [Synthroid] 0.5 tab PO DAILY 09/19/21 09/19/21 Naltrexone HCl [Revia] 50 mg PO DAILY 09/19/21 09/19/21 buPROPion HCL [Wellbutrin XL] 300 mg PO DAILY 09/19/21 09/19/21 Previous Rx's Medication Instructions Recorded Omeprazole [PriLOSEC] 40 mg PO DAILY #30 capsule. 08/08/20 Amoxic-Pot Clav 875-125Mg 1 tab PO Q12HR 10 Days #20 tab 12/19/23 [Augmentin 875-125] Allergies Allergy/AdvReac Type Severity Reaction Status Date / Time naproxen [From Naprosyn] Allergy Anaphylaxis Verified 12/19/23 10:24 NSAIDS (Non-Steroidal Allergy Anaphylaxis Verified 12/19/23 10:24 Anti-Inflamma Review of Systems ROS Statement: Those systems with pertinent positive or pertinent negative responses have been documented in the HPI. ROS Other: All systems not noted in ROS Statement are negative. Past Medical History Past Medical History: Osteoarthritis (OA), Sleep Apnea/CPAP/BIPAP Additional Past Medical History / Comment(s): Chronic Otitis Media. History of Any Multi-Drug Resistant Organisms: None Reported Past Surgical History: Bariatric Surgery, Bladder Surgery, Ear Surgery, Hysterectomy, Tonsillectomy Additional Past Surgical History / Comment(s): sleeve gastrectomy 08-07-20 Past Anesthesia/Blood Transfusion Reactions: No Reported Reaction Past Psychological History: Anxiety, Bipolar, Depression, PTSD, Schizophrenia Smoking Status: Current every day smoker Past Alcohol Use History: Abuse Past Drug Use History: Cocaine, Marijuana - Past Family History Mother Family Medical History: No Reported History General Exam Limitations: no limitations General appearance: alert, in no apparent distress Head exam: Present: other (Swelling along the right submandibular region. Overlying tenderness. No erythema or warmth. No dental carries, gum tenderness, or palpable dental abscess.) Respiratory exam: Present: normal lung sounds bilaterally. Absent: respiratory distress, wheezes, rales, rhonchi, stridor Cardiovascular Exam: Present: regular rate, normal rhythm, normal heart sounds. Absent: systolic murmur, diastolic murmur, rubs, gallop, clicks Neurological exam: Present: alert, oriented X3, CN II-XII intact Psychiatric exam: Present: normal affect, normal mood Course Vital Signs 12/19/23 12/19/23 12/19/23 10:20 11:07 12:12 Temperature 98.0 F 98 F 98.3 F Pulse Rate 56 L 58 L 60 Respiratory 18 16 14 Rate Blood Pressure 104/69 107/67 111/72 O2 Sat by Pulse 99 99 98 Oximetry 12/19/23 13:18 Temperature 98.1 F Pulse Rate 58 L Respiratory 16 Rate Blood Pressure 115/72 O2 Sat by Pulse 99 Oximetry Medical Decision Making - Medical Decision Making This is a 43 year old female who presents to the emergency department for right sided facial pain/swelling. Was pt. sent in by a medical professional or institution? @ -No Did you speak to anyone other than the patient for history? @ -No Did you review nursing and triage notes? @ -Yes, and I agree, it is accurate with regards to the patient's symptoms. Were old charts reviewed? @ -No Differential Diagnosis? @ -Differential Facial Pain/Swelling: Dental abscess, parotitis, sialoadenitis, facial cellulitis, this is not meant to be an all-inclusive list. EKG interpreted by me (3pts min.)? @ -Not obtained X-rays interpreted by me (1pt min.)? @ -Not obtained CT interpreted by me (1pt min.)? @ -Not obtained U/S interpreted by me (1pt. min.)? @ -US of the soft tissue neck obtained. My interpretation identifies lymphadenopathy. What testing was considered but not performed? (CT, X-rays, U/S, labs)? Why? @ -None What meds were considered but not given? Why? @ -None Did you discuss the management of the patient with other professionals? @ -No Did you reconcile home meds? @ -No Was smoking cessation discussed for >3mins.? @ -No Was critical care preformed (if so, how long)? @ -No Were there social determinants of health that impacted care today? How? (Homelessness, low income, unemployed, alcoholism, drug addiction, transportation, low edu. Level, literacy, decrease access to med. care, retirement, rehab)? @ -No Was there de-escalation of care discussed even if they declined? (Discuss DNR or withdrawal of care, Hospice)? @ -No What co-morbidities impacted this encounter? (DM, HTN, Smoking, COPD, CAD, Cancer, CVA, Hep., AIDS, mental health diagnosis, sleep apnea, morbid obesity)? @ -None Was patient admitted / discharged? @ -Discharged. On exam the patient had no pain in the gums or signs of a den leilani abscess/infection. Oropharynx exam also revealed no acute findings. Lab work demonstrates an elevated CRP of 4.0 and was otherwise unremarkable. There was no leukocytosis. Amylase within normal limits. Ultrasound of the soft tissue neck demonstrates multiple nonspecific enlarged right-sided submandibular region lymph nodes. Findings reviewed with the patient. Symptoms were managed in the emergency department. We'll switch the patient from Bactrim to Augmentin. We also discussed the possibility of salivary gland issues and I advised warm compresses and sucking on things like candy to stimulate saliva production. Information for ENT follow-up provided as well. Patient discharged home in stable condition. Undiagnosed new problem with uncertain prognosis? @ -None Drug Therapy requiring intensive monitoring for toxicity (Heparin, Nitro, Insulin, Cardizem)? @ -None Were any procedures done? @ -None Diagnosis/symptom? @ -Right submandibular lymphadenopathy Acute, or Chronic, or Acute on Chronic? @ -Acute Uncomplicated (without systemic symptoms) or Complicated (systemic symptoms)? @ -Uncomplicated Side effects of treatment? @ -None Exacerbation, Progression, or Severe Exacerbation] @ -Not applicable Poses a threat to life or bodily function? @ -No Return precautions reviewed in depth, the patient is instructed to return to the emergency department with any new, worsening, or concerning symptoms. Patient verbalized understanding. This case was discussed in detail with the attending ED physician, Dr. Preciado. P resentation, findings, and treatment plan discussed in detail as well. - Lab Data Result diagrams: 12/19/23 12:28 12/19/23 12: Lab Results 12/19/23 12/19/23 Range/Units 12:28 12:28 WBC 6.5 (3.8-10.6) k/uL RBC 3.87 (3.80-5.40) m/uL Hgb 12.4 (11.4-16.0) gm/dL Hct 39.4 (34.0-46.0) % MCV 101.8 H (80.0-100.0) fL MCH 32.1 (25.0-35.0) pg MCHC 31.5 (31.0-37.0) g/dL RDW 13.0 (11.5-15.5) % Plt Count 188 (150-450) k/uL MPV 7.8 Neutrophils % 55 % Lymphocytes % 33 % Monocytes % 6 % Eosinophils % 2 % Basophils % 0 % Neutrophils # 3.6 (1.3-7.7) k/uL Lymphocytes # 2.2 (1.0-4.8) k/uL Monocytes # 0.4 (0-1.0) k/uL Eosinophils # 0.1 (0-0.7) k/uL Basophils # 0.0 (0-0.2) k/uL Hypochromasia Slight Macrocytosis Slight Sodium 141 (137-145) mmol/L Potassium 5.1 (3.5-5.1) mmol/L Chloride 110 H (98-107) mmol/L Carbon Dioxide 28 (22-30) mmol/L Anion Gap 3 mmol/L BUN 17 (7-17) mg/dL Creatinine 1.00 (0.52-1.04) mg/dL Est GFR (CKD-EPI)AfAm 80 (>60 ml/min/1.73 sqM) Est GFR (CKD-EPI)NonAf 69 (>60 ml/min/1.73 sqM) Glucose 80 (74-99) mg/dL Calcium 9.0 (8.4-10.2) mg/dL Total Bilirubin 0.2 (0.2-1.3) mg/dL AST 14 (14-36) U/L ALT 9 (4-34) U/L Alkaline Phosphatase 56 (38-126) U/L C-Reactive Protein 4.0 H (<1.0) mg/dL Total Protein 5.7 L (6.3-8.2) g/dL Albumin 3.5 (3.5-5.0) g/dL Amylase 40 (30-110) U/L Lipase 50 (23-300) U/L - Radiology Data Radiology results: report reviewed, image reviewed Disposition Clinical Impression: Submandibular lymphadenopathy Disposition: HOME SELF-CARE Instructions (If sedation given, give patient instructions): Lymphadenopathy (ED) Additional Instructions: Return to the emergency department with any new, worsening, or concerning symptoms. Take the antibiotic as prescribed for 10 days. Apply warm compresses and try sucking on candies to stimulate salivary production. Contact the ENT listed below for a follow up appointment. Follow up with your primary care provider in 1-2 days. Prescriptions: Amoxic-Pot Clav 875-125Mg [Augmentin 875-125] 1 tab PO Q12HR 10 Days #20 tab Is patient prescribed a controlled substance at d/c from ED?: No Referrals: Kelton Mancilla MD [Primary Care Provider] - 1-2 days Cr Brady MD [STAFF PHYSICIAN] - 1-2 days Mika Dominguez MD [STAFF PHYSICIAN] - 1-2 days Time of Disposition: 13:20
--- NOTE | 2023-12-19 11:54 | US ---
EXAMINATION TYPE: US thyroid st tissue head/neck DATE OF EXAM: 12/19/2023 COMPARISON: NONE CLINICAL INDICATION: Female, 43 years old with history of Right sided facial mass; Right facial swell ing x 1 week; Patient denies any other signs, symptoms, or relevant history. TECHNIQUE: Grayscale and color Doppler ultrasound images of the right submandibular and lateral neck regions were obtained at patient's site of facial swelling. FINDINGS/IMPRESSION: Multiple enlarged right-sided mandibular lymph nodes identified with largest med ially measuring up to 2.1 x 2.2 x 1.8 cm. These appear to demonstrate significant fatty hilum eccentr ic thickening measuring up to 1.3 cm. Additional suspected enlarged lymph node lateral to the right s ubmandibular lymph gland measuring 2.7 x 1.5 x 1.1 cm with ovoid shape. No organized fluid collection identified. IMPRESSION: Multiple nonspecific enlarged right-sided submandibular region lymph nodes. Etiologies i nclude reactive versus other with metastasis from unknown primary malignancy not excluded. Further wo rkup is recommended.
[2023-12-19] MEDS: HYDROmorphone 1 MG/ML 1 ML SYRINGE IVP STA (12:55)
[2023-12-19 12:58] LABS: Basophils % (A) 0 %; Eosinophils # (A) 0.1 k/uL (0-0.7); Eosinophils % (A) 2 %; HCT 39.4 % (34.0-46.0); HGB 12.4 gm/dL (11.4-16.0); Hypochromasia Slight; Lymphocytes # (A) 2.2 k/uL (1.0-4.8); Lymphocytes % (A) 33 %; MCH 32.1 pg (25.0-35.0); MCHC 31.5 g/dL (31.0-37.0); MCV 101.8 fL (80.0-100.0); Macrocytosis Slight; Mean Platelet Volume 7.8; Monocytes # (A) 0.4 k/uL (0-1.0); Monocytes % (A) 6 %; Neutrophils # (A) 3.6 k/uL (1.3-7.7); Neutrophils % (A) 55 %; Platelet Count 188 k/uL (150-450); RBC 3.87 m/uL (3.80-5.40); WBC 6.5 k/uL (3.8-10.6)
[2023-12-19] MEDS: HYDROmorphone 1 MG/ML 1 ML SYRINGE IM STA (13:06)
[2023-12-19 13:12] LABS: ALT 9 U/L (4-34); AST 14 U/L (14-36); African American GFR (CKD) 80 (>60 ml/min/1.73 sqM); Albumin 3.5 g/dL (3.5-5.0); Alkaline Phosphatase 56 U/L (38-126); Amylase 40 U/L (30-110); Anion Gap 3 mmol/L; Blood Urea Nitrogen 17 mg/dL (7-17); Carbon Dioxide 28 mmol/L (22-30); Chloride 110 mmol/L (98-107); Glucose 80 mg/dL (74-99); Lipase 50 U/L (23-300); Non-African American GFR(CKD) 69 (>60 ml/min/1.73 sqM); Potassium 5.1 mmol/L (3.5-5.1); Sodium 141 mmol/L (137-145); Total Bilirubin 0.2 mg/dL (0.2-1.3); Total Protein 5.7 g/dL (6.3-8.2)
[2023-12-19 13:19] VITALS: BP 115/72; PULSE 58; RESP 16; TEMP 98.1
[2023-12-19] MEDS: DEXAMETHASONE SOD PHOSPHATE 10 MG/ML 1 ML VIAL IVP STA (13:44)
[2023-12-19] MEDS: ACET/COD 300 MG/30 MG STARTER PACK 6 TAB BTL PO STA (13:45)
== END 2023-12-19 13:45 | disposition home or self-care (01) ==
LOC: EC 10:10
DX: R59.0 Localized enlarged lymph nodes (principal); F17.200 Nicotine dependence, unspecified, uncomplicated; Z88.6 Allergy status to analgesic agent
CPT/HCPCS: 36415; 80053; 82150; 83690; 85025; 86140; 76536; 99284; 96374; 96375; 96372; J2270; J1100; J1170

== ENCOUNTER 2024-12-27 12:58 | Inpatient (IN) | payer BC, MEDICARE ==
--- NOTE | 2024-12-27 14:06 | ED ---
General Adult HPI - General Chief complaint: Psychiatric Symptoms Stated complaint: Mental health eval Time Seen by Provider: 12/27/24 13:15 Source: patient, RN notes reviewed, old records reviewed Mode of arrival: ambulatory Limitations: no limitations - History of Present Illness Initial comments: 44-year-old female presents emergency department complaining of suicidal ideation. States she is a plan of taking her car and running out of storage unit. Turning on the car while she is in there taking her nighttime meds and falling asleep and not waking up from carbon monoxide poisoning. States she has not attempted this. Does have a history of psychiatric illness. Has been compliant with all medications but obviously they seem to not be helping and she has been having these thoughts for those few days to weeks. Denies any homicidal ideations, intents, plans. Denies any hallucinations. Denies any recent drug abuse, states she did take some Adderall last week but other than that just marijuana. Denies any recent alcohol abuse. Denies chest pain, abdominal pain, nausea, vomiting. No other acute complaints. Presents for f urther evaluation at this time. Was with her therapist this morning, who recommended she come here for evaluation. She is cooperative. - Related Data Home Medications Medication Instructions Recorded Confirmed Divalproex Sodium [Depakote] 1,000 mg PO HS 03/20/20 12/27/24 Cariprazine HCl [Vraylar] 6 mg PO DAILY 12/27/24 12/27/24 Dextromethorphan HBr/Bupropion 1 tab PO BID 12/27/24 12/27/24 [Auvelity ER 45-105 mg Tablet] Levothyroxine Sodium [Synthroid] 50 mcg PO AC-BRKFST 12/27/24 12/27/24 Naltrexone Microspheres [Vivitrol] 380 mg IM Q28D 12/27/24 12/27/24 QUEtiapine FUMARATE [SEROquel XR] 300 mg PO HS 12/27/24 12/27/24 Previous Rx's Medication Instructions Recorded Omeprazole [PriLOSEC] 40 mg PO DAILY #30 capsule. 08/08/20 Allergies Allergy/AdvReac Type Severity Reaction Status Date / Time naproxen [From Naprosyn] Allergy Anaphylaxis Verified 12/27/24 15:14 NSAIDS (Non-Steroidal Allergy Anaphylaxis Verified 07/28/25 15:14 Anti-Inflamma Review of Systems ROS Statement: Those systems with pertinent positive or pertinent negative responses have been documented in the HPI. Review of Systems: CONST: Denies fever EYES: Denies blurry vision ENT: Denies nasal congestion C/V: Denies Chest pain RESP: Denies shortness of breath GI: Denies abdominal pain : Denies dysuria SKIN: Denies rash. MSK: Denies joint pain. NEURO: Denies headache ROS Other: All systems not noted in ROS Statement are negative. Past Medical History Past Medical History: Osteoarthritis (OA), Sleep Apnea/CPAP/BIPAP Additional Past Medical History / Comment(s): Chronic Otitis Media. History of Any Multi-Drug Resistant Organisms: None Reported Past Surgical History: Bariatric Surgery, Bladder Surgery, Ear Surgery, Hysterectomy, Tonsillectomy Additional Past Surgical History / Comment(s): sleeve gastrectomy 08-07-20 Past Anesthesia/Blood Transfusion Reactions: No Reported Reaction Past Psychological History: Anxiety, Bipolar, Depression, PTSD, Schizophrenia Smoking Status: Current every day smoker Past Alcohol Use History: Abuse Past Drug Use History: Cocaine, Marijuana - Past Family History Mother Family Medical History: No Reported History General Exam - General Exam Comments Initial Comments: General: Appears in no acute distress. HEAD: Normal with no signs of head trauma. EYES: EOMI. ENT: Hearing grossly intact. RESPIRATORY: No respiratory distress. C/V: Regular rate and rhythm. ABD: Abdomen is nondistended. EXT: No obvious deformity. SKIN: No rashes or lesions observed on exposed skin. NEURO: Alert and oriented. Limitations: no limitations Course Vital Signs 12/27/24 13:04 Temperature 98.4 F Pulse Rate 62 Respiratory 20 Rate Blood Pressure 145/88 O2 Sat by Pulse 97 Oximetry Medical Decision Making - Medical Decision Making Was pt. sent in by a medical professional or institution (, PA, PLANT ENGINEER, urgent care, hospital, or alf...) When possible be specific @ -No Did you speak to anyone other than the patient for history (EMS, parent, family, police, friend...)? What history was obtained from this source @ -No Did you review nursing and triage notes (agree or disagree)? Why? @ -I reviewed and agree with nursing and triage notes Were old charts reviewed (outside hosp., previous admission, EMS record, old EKG, old radiological studies, urgent care reports/EKG's, alf records)? Report findings @ -No old charts were reviewed Differential Diagnosis (chest pain, altered mental status, abdominal pain women, abdominal pain men, vaginal bleeding, weakness, fever, dyspnea, syncope, headache, dizziness, GI bleed, back pain, seizure, CVA, palpatations, mental health, musculoskeletal)? @ -Differential Mental Health Depression, anxiety, bipolar, psychosis, schizophrenia, borderline personality, situational depression, adjustment disorder, behavioral disorder, brain tumor, malingering, substance abuse, encephalopathy, medication reaction, dementia, hypothyroidism, degenerative neurologic disorder, lupus.... This is not meant to be all-inclusive list EKG interpreted by me (3pts min.). @ -None done X-rays interpreted by me (1pt min.). @ -None done CT interpreted by me (1pt min.). @ -None done U/S interpreted by me (1pt. min.). @ -None done What testing was considered but not performed or refused? (CT, X-rays, U/S, labs)? Why? @ -None What meds were considered but not given or refused? Why? @ -None Did you discuss the management of the patient with other professionals (professionals i.e. , PA, PLANT ENGINEER, lab, RT, psych nurse, nursing home social worker, mechanical maintenance instructor, teacher, chief diversity officer, case operator)? Give summary @ -EPS notified of the consult Was smoking cessation discussed for >3mins.? @ -No Was critical care preformed (if so, how long)? @ -No Were there social determinants of health that impacted care today? How? (Homelessness, low income, unemployed, alcoholism, drug addiction, transportation, low edu. Level, literacy, decrease access to med. care, half-way, rehab)? @ -No Was there de-escalation of care discussed even if they declined (Discuss DNR or withdrawal of care, Hospice)? DNR status @ -No What co-morbidities impacted this encounter? (DM, HTN, Smoking, COPD, CAD, Cancer, CVA, ARF, Chemo, Hep., AIDS, mental health diagnosis, sleep apnea, morbid obesity)? @ -None Was patient admitted / discharged? Hospital course, mention meds given and route, prescriptions, significant lab abnormalities, going to OR and other pertinent info. @ -Patient presents emergency department complaining of suicidal ideations with a plan. Suicide precautions ordered. Sitter ordered. BAT is 0. UDS is pending. She has no other acute complaints. Vital signs are within acceptable limits. At this time, patient is medically cleared for evaluation by psychiatry. Disposition pending psychiatric evaluation. EPS notified of the consult. EPS Candy evaluated patient and determined that patient does meet inpatient psychiatric arteria. Patient be admitted to inpatient psychiatry. Undiagnosed new problem with uncertain prognosis? @ -No Drug Therapy requiring intensive monitoring for toxicity (Heparin, Nitro, Insulin, Cardizem)? @ -No Were any procedures done? @ -No Diagnosis/symptom? @ -Suicidal ideation with a plan Acute, or Chronic, or Acute on Chronic? @ -Acute Uncomplicated (without systemic symptoms) or Complicated (systemic symptoms)? @ -Complicated Side effects of treatment? @ -None Exacerbation, Progression, or Severe Exacerbation] @ -No Poses a threat to life or bodily function? @ -Yes - Lab Data Lab Results 12/27/24 Range/Units 16:47 Urine Opiates Screen Not Detected (NotDetected) Ur Oxycodone Screen Not Detected (NotDetected) Urine Methadone Screen Not Detected (NotDetected) Ur Barbiturates Screen Not Detected (NotDetected) U Tricyclic Antidepress Detected H (NotDetected) Ur Phencyclidine Scrn Not Detected (NotDetected) Ur Amphetamines Screen Not Detected (NotDetected) U Methamphetamines Scrn Not Detected (NotDetected) U Benzodiazepines Scrn Not Detected (NotDetected) Urine Cocaine Screen Not Detected (NotDetected) U Marijuana (THC) Screen Detected H (NotDetected) Disposition Clinical Impression: Suicidal ideations Disposition: TRANSFER TO PSYCH HOSP/UNIT Condition: Stable Referrals: Kelton Mancilla MD [Primary Care Provider] - 1-2 days
[2024-12-27 17:08] LABS: Barbiturate Screen,Urine Not Detected (NotDetected); Benzodiazepines Screen,Urine Not Detected (NotDetected); Opiate Screen,Urine Not Detected (NotDetected); Oxycodone Screen, Urine Not Detected (NotDetected); Phencyclidine Screen,Urine Not Detected (NotDetected); Tricyclic Antidepressant,Urine Detected (NotDetected); Urn Cannabinoid Scrn Detected (NotDetected)
[2024-12-27] MEDS ORDERED: MAG HYDROX/AL HYDROX/SIMETH 355 ML BOTTLE PO PRN (21:26)
[2024-12-27] MEDS ORDERED: LORazepam 1 MG TAB PO PRN (21:26)
[2024-12-27] MEDS: QUEtiapine 100 MG TAB PO SCH (22:23)
[2024-12-27] MEDS: DIVALPROEX 500 MG TABLET.DR PO SCH (22:23)
--- NOTE | 2024-12-27 22:38 | P.CONS ---
History of Present Illness - Reason for Consult Consult date: 12/27/24 Medical comanagement - Chief Complaint Suicidal ideation - History of Present Illness Mechelle is a 44-year-old female with past medical history of prior sleeve gastrectomy bipolar disorder ADHD. She presents to hospital due to increased suicidal thoughts over the past month. She reports that she has been increasingly fatigued and does not want to wake up in the morning. She reports that she does have a plan for suicidal ideation. She reports that she would want to drive her vehicle to a storage unit take medications and reports does not want to wake up. Current lab work shows a urine drug screen positive for tricyclic antidepressants and along with cannabis. Vital signs show a temperature of 90.4 heart rate of 62 respiratory 20 blood pressure 145/88 and 97% room air. Review of Systems ROS negative except for HPI Past Medical History Past Medical History: Osteoarthritis (OA), Sleep Apnea/CPAP/BIPAP Additional Past Medical History / Comment(s): Chronic Otitis Media. History of Any Multi-Drug Resistant Organisms: None Reported Past Surgical History: Bariatric Surgery, Bladder Surgery, Ear Surgery, Hysterectomy, Tonsillectomy Additional Past Surgical History / Comment(s): sleeve gastrectomy 3 Past Anesthesia/Blood Transfusion Reactions: No Reported Reaction Past Psychological History: Anxiety, Bipolar, Depression, PTSD, Schizophrenia Smoking Status: Current every day smoker Past Alcohol Use History: Abuse Past Drug Use History: Cocaine, Marijuana - Past Family History Mother Family Medical History: No Reported History Medications and Allergies Home Medications Medication Instructions Recorded Confirmed Type Divalproex Sodium [Depakote] 1,000 mg PO HS 03/20/20 12/27/24 History Omeprazole [PriLOSEC] 40 mg PO DAILY #30 capsule. 08/08/20 12/27/24 Rx Cariprazine HCl [Vraylar] 6 mg PO DAILY 12/27/24 12/27/24 History Dextromethorphan HBr/Bupropion 1 tab PO BID 12/27/24 12/27/24 History [Auvelity ER 45-105 mg Tablet] Levothyroxine Sodium [Synthroid] 50 mcg PO AC-BRKFST 12/27/24 12/27/24 History Naltrexone Microspheres [Vivitrol] 380 mg IM Q28D 12/27/24 12/27/24 History QUEtiapine FUMARATE [SEROquel XR] 300 mg PO HS 12/27/24 12/27/24 History Allergies Allergy/AdvReac Type Severity Reaction Status Date / Time naproxen [From Naprosyn] Allergy Anaphylaxis Verified 12/27/24 15:14 NSAIDS (Non-Steroidal Allergy Anaphylaxis Verified 12/27/24 15:14 Anti-Inflamma Physical Exam Vitals: Vital Signs Temp Pulse Resp BP Pulse Ox 12/27/24 13:04 98.4 F 62 20 145/88 97 Intake and Output 12/27/24 12/27/24 12/27/24 06:59 14:59 22:59 Other: Weight 63.503 kg General: non toxic, no distress, female Derm: warm, dry Head: atraumatic, normocephalic, symmetric Eyes: EOMI, no lid lag, anicteric scler ENT: Nose and ears atraumatic, no thrush, no pharyngeal erythema Neck: No thyromegaly, no cervical lymphadenopathy, trachea midline, supple Mouth: no lip lesion, mucus membranes moist Cardiovascular: S1S2 reg, no murmur Lungs: clear to ascultation bilateral, Abdominal: soft, nontender to palpation, no guarding, no appreciable organomegaly Ext: no gross muscle atrophy, Neuro: Moving all extremity spontaneously Psych: Calm and cooperative Results Labs: Abnormal Lab Results - Last 24 Hours (Table) 12/27/24 Range/Units 16:47 U Tricyclic Antidepress Detected H (NotDetected) U Marijuana (THC) Screen Detected H (NotDetected) Assessment and Plan Assessment: #) suicideal ideation, primary management as per primary team #) Bipolar disorder continue home Depakote 1000 mg nightly. Check Depakote level. Continue home Seroquel 300 mg nightly. continue hoem cariprazine #) hypothyroid dz continue home levothyroxine 50 mcg daily. check tsh with freet4 #) gerd continue home omeprazole 40 mg dialy #) cannabis use, recommednd cessation #)history of sleeve gastrectomy in 2020 #) self reported history of borderline personality disorder CBC TSH CMP lipid profile A1c pending at the time of screening. Thank you for allowing us to take care of this patient
[2024-12-28 07:52] LABS: Bilirubin,Urine Negative (Negative); Blood,Urine Negative (Negative); Calcium Oxalate Crystals,Urine Moderate /hpf; Color,Urine Yellow; Glucose,Urine (UA) Negative (Negative); Ketones,Urine Negative (Negative); Leukocyte Esterase,Urine Negative (Negative); Mucus,Urine Occasional /hpf; Nitrite,Urine Negative (Negative); PH, Urine 6.5 (5.0-8.0); Protein,Urine Trace (Negative); RBC,Urine 1 /hpf (0-5); Specific Gravity,Urine 1.033 (1.001-1.035); Squamous Epithelial Cell,Urine 1 /hpf (0-4); Urobilinogen,Urine 2.0 mg/dL (<2.0); WBC,Urine 2 /hpf (0-5)
[2024-12-28] MEDS: NICOTINE 14MG/24HR PATCH TRANSDERM SCH (08:01)
[2024-12-28] MEDS: LEVOTHYROXINE 50 MCG TAB PO SCH (08:01)
[2024-12-28] MEDS: PANTOPRAZOLE 40 MG TABLET PO SCH (08:01)
[2024-12-28] MEDS: BUPROPION PO SCH (08:03)
[2024-12-28] MEDS: NON FORMULARY DRUG (Cariprazine Hcl [Vraylar] 6 MG Capsule) PO SCH (08:03)
[2024-12-28] MEDS: [UNRECOGNIZED DRUG - OTHER] PO SCH (08:03)
[2024-12-28] MEDS: DEXTROMETHORPHAN HBR PO SCH (08:03)
[2024-12-28 11:14] LABS: Basophils # (A) 0.02 10*3/uL (0.00-0.10); Basophils % (A) 0.5 %; Eosinophils # (A) 0.07 10*3/uL (0.04-0.35); Eosinophils % (A) 1.7 %; HCT 38.7 % (37.2-46.3); HGB 12.0 g/dL (12.0-15.0); Lymphocytes # (A) 2.01 10*3/uL (0.90-5.00); Lymphocytes % (A) 49.4 %; MCH 29.1 pg (27.0-32.0); MCHC 31.0 g/dL (32.0-37.0); MCV 93.9 fL (80.0-97.0); Monocytes # (A) 0.22 10*3/uL (0.20-1.00); Monocytes % (A) 5.4 %; Neutrophils # (A) 1.74 10*3/uL (1.80-7.70); Neutrophils % (A) 42.8 %; Platelet Count 198 10*3/uL (140-440); RBC 4.12 10*6/uL (4.10-5.20); RDW 15.3 % (11.5-14.5); WBC 4.07 10*3/uL (4.50-10.00)
[2024-12-28 11:33] LABS: ALT 13 U/L (4-34); AST 20 U/L (14-36); African American GFR (CKD) 65 (>60 ml/min/1.73 sqM); Albumin 3.4 g/dL (3.5-5.0); Alkaline Phosphatase 46 U/L (38-126); Anion Gap 2 mmol/L; Blood Urea Nitrogen 16 mg/dL (7-17); Calcium 9.2 mg/dL (8.4-10.2); Carbon Dioxide 32 mmol/L (22-30); Chloride 109 mmol/L (98-107); Glucose 98 mg/dL (74-99); Non-African American GFR(CKD) 56 (>60 ml/min/1.73 sqM); Potassium 5.1 mmol/L (3.5-5.1); Sodium 143 mmol/L (137-145); Total Protein 5.7 g/dL (6.3-8.2)
[2024-12-28 12:41] LABS: T4, Free (Free Thyroxine) 0.68 ng/dL (0.78-2.19)
[2024-12-28] MEDS: NALTREXONE MICROSPHERES 380 MG VIAL (NO COST - VIVITROL) IM SCH (13:19)
[2024-12-28] MEDS: ARIPiprazole 5 MG TAB PO SCH (13:19)
--- NOTE | 2024-12-28 14:11 | P.HP ---
Psychiatric H&P - . H&P Date: 12/28/24 History & Physical: Allergies Allergy/AdvReac Type Severity Reaction Status Date / Time naproxen from Naprosyn Allergy Anaphylaxis Verified 12/27/24 15:14 NSAIDS (Non-Steroidal Allergy Anaphylaxis Verified 12/27/24 15:14 Anti-Inflamma Vital Signs Temp 97.4 F L 12/28/24 08:02 Pulse 61 12/28/24 08:02 Resp 16 12/27/24 22:29 BP 95/68 12/28/24 08:02 Pulse Ox 97 12/28/24 08:02 FiO2 Intake & Output 12/27/24 12/28/24 12/28/24 18:59 06:59 18:59 Weight 63.503 kg 65.402 kg Laboratory Last Values WBC 4.07 10*3/uL (4.50-10.00) L 12/28/24 09:49 RBC 4.12 10*6/uL (4.10-5.20) 12/28/24 09:49 Hgb 12.0 g/dL (12.0-15.0) 12/28/24 09:49 Hct 38.7 % (37.2-46.3) 12/28/24 09:49 MCV 93.9 fL (80.0-97.0) 12/28/24 09:49 MCH 29.1 pg (27.0-32.0) 12/28/24 09:49 MCHC 31.0 g/dL (32.0-37.0) L 12/28/24 09:49 Plt Count 198 10*3/uL (140-440) 12/28/24 09:49 MPV 10.3 fL (9.5-12.2) 12/28/24 09:49 Immature Gran % (Auto) 0.2 % 12/28/24 09:49 Neutrophils % 42.8 % 12/28/24 09:49 Lymphocytes % 49.4 % 12/28/24 09:49 Monocytes % 5.4 % 12/28/24 09:49 Eosinophils % 1.7 % 12/28/24 09:49 Basophils % 0.5 % 12/28/24 09:49 Immature Gran # 0.01 10*3/uL (0.00-0.04) 12/28/24 09:49 Neutrophils # 1.74 10*3/uL (1.80-7.70) L 12/28/24 09:49 Lymphocytes # 2.01 10*3/uL (0.90-5.00) 12/28/24 09:49 Monocytes # 0.22 10*3/uL (0.20-1.00) 12/28/24 09:49 Eosinophils # 0.07 10*3/uL (0.04-0.35) 12/28/24 09:49 Basophils # 0.02 10*3/uL (0.00-0.10) 12/28/24 09:49 Sodium 143 mmol/L (137-145) 12/28/24 09:49 Potassium 5.1 mmol/L (3.5-5.1) 12/28/24 09:49 Chloride 109 mmol/L (98-107) H 12/28/24 09:49 Carbon Dioxide 32 mmol/L (22-30) H 12/28/24 09:49 Anion Gap 2 mmol/L 12/28/24 09:49 BUN 16 mg/dL (7-17) 12/28/24 09:49 Creatinine 1.17 mg/dL (0.52-1.04) H 12/28/24 09:49 Est GFR (CKD-EPI)AfAm 65 (>60 ml/min/1.73 sqM) 12/28/24 09:49 Est GFR (CKD-EPI)NonAf 56 (>60 ml/min/1.73 sqM) 12/28/24 09:49 Glucose 98 mg/dL (74-99) 12/28/24 09:49 Calcium 9.2 mg/dL (8.4-10.2) 12/28/24 09:49 Total Bilirubin 0.2 mg/dL (0.2-1.3) 12/28/24 09:49 AST 20 U/L (14-36) 12/28/24 09:49 ALT 13 U/L (4-34) 12/28/24 09:49 Alkaline Phosphatase 46 U/L (38-126) 12/28/24 09:49 Total Protein 5.7 g/dL (6.3-8.2) L 12/28/24 09:49 Albumin 3.4 g/dL (3.5-5.0) L 12/28/24 09:49 TSH 1.480 mIU/L (0.465-4.680) 12/28/24 09:49 Free T4 0.68 ng/dL (0.78-2.19) L 12/28/24 09:49 Urine Color Yellow 12/27/24 16:47 Urine Appearance Cloudy (Clear) H 12/27/24 16:47 Urine pH 6.5 (5.0-8.0) 12/27/24 16:47 Ur Specific [place] 1.033 (1.001-1.035) 12/27/24 16:47 Urine Protein Trace (Negative) H 12/27/24 16:47 Urine Glucose (UA) Negative (Negative) 12/27/24 16:47 Urine Ketones Negative (Negative) 12/27/24 16:47 Urine Blood Negative (Negative) 12/27/24 16:47 Urine Nitrite Negative (Negative) 12/27/24 16:47 Urine Bilirubin Negative (Negative) 12/27/24 16:47 Urine Urobilinogen 2.0 mg/dL (<2.0) 12/27/24 16:47 Ur Leukocyte Esterase Negative (Negative) 12/27/24 16:47 Urine RBC 1 /hpf (0-5) 12/27/24 16:47 Urine WBC 2 /hpf (0-5) 12/27/24 16:47 Ur Squamous Epith Cells 1 /hpf (0-4) 12/27/24 16:47 Calcium Oxalate Crystal Moderate /hpf (None) H 12/27/24 16:47 Urine Mucus Occasional /hpf (None) H 12/27/24 16:47 Urine HCG, Qual Not Detected (Not Detectd) 12/27/24 16:47 Urine Opiates Screen Not Detected (NotDetected) 12/27/24 16:47 Ur Oxycodone Screen Not Detected (NotDetected) 12/27/24 16:47 Urine Methadone Screen Not Detected (NotDetected) 12/27/24 16:47 Ur Barbiturates Screen Not Detected (NotDetected) 12/27/24 16:47 Valproic Acid 65.6 ug/mL 12/28/24 09:49 U Tricyclic Antidepress Detected (NotDetected) H 12/27/24 16:47 Ur Phencyclidine Scrn Not Detected (NotDetected) 12/27/24 16:47 Ur Amphetamines Screen Not Detected (NotDetected) 12/27/24 16:47 U Methamphetamines Scrn Not Detected (NotDetected) 12/27/24 16:47 U Benzodiazepines Scrn Not Detected (NotDetected) 12/27/24 16:47 Urine Cocaine Screen Not Detected (NotDetected) 12/27/24 16:47 U Marijuana (THC) Screen Detected (NotDetected) H 12/27/24 16:47 SARS-CoV-2 (PCR) Not Detected (Not Detectd) 12/27/24 19:30 12/28/24 14:04 IDENTIFYING DATA: Patient is a 44-year-old female, interested. She has 3 kids collect Social Security and also works part-time at the [employer] [place] HPI: Patient presented to the hospital yesterday and was evaluated by EPS, patient apparently was making thoughts of suicidal statements of wanting to suffocate herself from carbon monoxide endorsing depression. Patient does have a history of schizoaffective disorder seen at [facility] on psychiatric medications currently. Patient was admitted voluntarily to the mental health unit. She was seen today agreeable to speak to advertising writer. Claims that she is "tired of waking up" and was fairly tearful during the initial parts of the conversation. She states that she been feeling more depressed and anxious lately. Claims that has been going on for the past month or so. States that she cannot see her daughter due to unknown reasons and also her granddaughter who she recently had. She claims that they have been fairly distant through their relationship and she does not like that. Claims that she also has a close friend that recently when she is still grieving about. Claims that she wanted her therapist and her therapist informed her to come to the hospital. She denies any suicide attempts however is still stated that she is having suicidal thoughts at this time to suffocate herself in a car with carbon monoxide. Denies any paranoia. Does claim that she has a history of hearing voices however has not 4 a couple of years now. Claims that her sleep is increased and appetite is decreased. Patient denies any homicidal ideations intent or plan. At this time patient denies any auditory or visual hallucinations. Patient denies any flight of ideas racing thoughts and increased in goal directed behavior. Patient admits to using marijuana daily, claims that she also smokes cigarettes, states that she used to drink alcohol significantly is currently on the Vivitrol injection and it is due for the next dose. Has been sober for several months now. PAST PSYCHIATRIC HISTORY: Patient has a history of schizoaffective disorder and alcohol abuse. Patient is on several different medications including auvelity, vraylar, Depakote, seroquel. Patient's last psychiatric hospitalization was in December 2018. Patient used to follow up with Dr. Catalan at [facility] now seeing her practitioner. Claims that at the age of 16 she overdosed on pills. PMH: as per ER note ALLERGIES: as per EMR CHEMICAL DEPENDENCY HISTORY: as per HPI FAMILY PSYCHIATRIC/SUBSTANCE USE HISTORY: Claims that there is significant schizophrenia bipolar disorder and also depression on both sides of her family. SOCIAL HISTORY: Patient was born and raised in [facility]. 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 Claims that she currently [employer] and also works part-time at the [employer] [place]. Denies any legal history. Currently lives with her , she has 3 kids, they live in a house, collects Social Security disability. MENTAL STATUS EXAM: General Appearance: Patient appears to be stated age is alert, directable. Patient appears to have fair hygiene and grooming. Behavior: Patient is seated without any agitated behavior. Attempts to cooperate, tearful Speech: Patient's speech is fluent and nonpressured. Soft tone of voice Mood/Affect: Patient reports their mood is depressed and anxious, affect is congruent and tearful Suicidality/Homicidality: Patient denies having any homicidal ideation intent or plan. Admits to suicidal thoughts, no specific plan Perceptions: Patient denies any visual hallucinations and denies any auditory hallucinations Though content/process: There is no evidence of any delusional thought content and thought process is linear and goal-directed. Fairly concrete Memory and concentration: AOX3, grossly intact for the purposes of this session. Can spell "WORLD" backwards Judgment and insight: Poor STRENGTHS/WEAKNESSES: strength is that patient is resilient. Weakness is that patient has poor judgment and is impulsive INTELLECT: Average IMPRESSIONS: Schizoaffective disorder depressive type Cannabis use disorder Alcohol use disorder, and sustained remission Nicotine dependence PLAN: -Patient is admitted under voluntary status to MHU for stabilization of psychiatric symptoms and safety. Patient has signed adult voluntary form and has signed medication consent and is placed in patient's chart. -Medications : Continue with Seroquel 300 mg nightly for mood stabilization/insomnia, Cymbalta 30 mg daily for mood/anxiety, Abilify 5 mg daily for mood stabilization/psychosis, continue with Depakote changed to 500 mg twice daily for mood stabilization. Vivitrol injection today, next dose is q. monthly for alcohol cravings. -Ativan and Haldol PRN for agitation/aggression Will offer patient subtance use rehab -Patient was informed of the risks, benefits and side effects of the medications and patient verbally consented to taking the medications. Patient signed med consent form and was placed in chart. Patient was offered medication information and declined it -Internal Medicine consult to perform medical evaluation and physical. -NRT -nicotine patch -SW on board for discharge planning. Encourage patient to participate in groups to work on coping skills. 12/28/24 14:11
[2024-12-28 15:17] LABS: Cholesterol 169.00 mg/dL (0.00-200.00); HDL Cholesterol 58.80 mg/dL (40.00-60.00); LDL Cholesterol,Calculated 89.6 mg/dL (0.0-131.0); Triglycerides 103.00 mg/dL (0.00-149.00); VLDL Calculation 20.60 mg/dL (5.00-40.00)
[2024-12-28] MEDS: DIVALPROEX 500 MG TABLET.DR PO SCH (21:18)
[2024-12-29] MEDS: ACETAMINOPHEN TAB 325 MG TAB PO PRN (06:21)
--- NOTE | 2024-12-29 11:06 | P.PN ---
Progress Note - Text Progress Note Date: 12/29/24 Interval History: Patient was seen today for psychiatric follow up. Patient was seen wandering always and in the lounge. She claims that she is doing a bit better today compared to yesterday. Claims that he is not having any side effects that she has noticed. Claims that she is even able to sleep a bit better last night with the Seroquel. She received the naltrexone injection yesterday tolerated it well. Has been trying to go to groups. Claims that she is still feeling a bit depressed today and hopeless, suicidal thoughts have been improving no specific plan. She is denying any homicidal actions. Denies any auditory or visual hallucinations. We spoke more about her medications and answer questions. She claims that she is open to wean transition onto Abilify Maintenna injection to help control her symptoms. MENTAL STATUS EXAM: General Appearance: Patient appears to be stated age is alert, directable. Patient appears to have fair hygiene and grooming. Behavior: Patient is seated without any agitated behavior. Attempts to cooperate, not tearful today Speech: Patient's speech is fluent and nonpressured. Soft tone of voice, improving mildly Mood/Affect: Patient reports their mood is depressed, affect is congruent and improving affect Suicidality/Homicidality: Patient denies having any homicidal ideation intent or plan. Admits to suicidal thoughts, no specific plan, improving today Perceptions: Patient denies any visual hallucinations and denies any auditory quinones llucinations Though content/process: There is no evidence of any delusional thought content and thought process is linear and goal-directed. Fairly concrete, improving mildly Memory and concentration: AOX3, grossly intact for the purposes of this session Judgment and insight: improving mildly IMPRESSIONS: Schizoaffective disorder depressive type Cannabis use disorder Alcohol use disorder, and sustained remission Nicotine dependence PLAN: -Patient is admitted under voluntary status to MHU for stabilization of psychiatric symptoms and safety. Patient has signed adult voluntary form and has signed medication consent and is placed in patient's chart. -Medications : Seroquel 300 mg nightly for mood stabilization/insomnia, increase twice daily Cymbalta 30 mg daily for mood/anxiety, increase Abilify 7.5 mg daily for mood stabilization/psychosis, patient is open to transitioning onto long- acting injection if needed, Depakote 500 mg twice daily for mood stabilization. Vivitrol injection 380 mg IM, last dose was given on 12/28 and next dose will be due q. monthly on 01/25 for alcohol cravings. -Ativan and Haldol PRN for agitation/aggression -NRT -nicotine patch -SW on board for discharge planning. Encourage patient to participate in groups to work on coping skills. hopeful for discharge friday vs friday if patient is improving.
[2024-12-30] MEDS: ARIPiprazole 5 MG TAB PO SCH (08:02)
[2024-12-30 11:21] LABS: Glucose,Whole Blood 116 mg/dL (70-110)
--- NOTE | 2024-12-30 12:42 | P.PN ---
Progress Note - Text Progress Note Date: 12/30/24 Interval History: Patient was seen today for psychiatric follow up. Patient was seen wandering the hallways today was agreeable to speak today with real estate underwriter in the office. Patient claims that she is doing better today with regards to her mood and anxiety. States that she is no longer having any suicidal thoughts. Be more future oriented. She is however concerned about her medication dosages and wants to make sure she is doing well before she is discharged. We spoke about potential discharge tomorrow if she is ready. She has been going to groups. Has been feeling a bit dizzy at times with the medications was encouraged [place] as her blood pressure and is fairly soft. Claims that she did sleep fairly last night not reporting any side effects at this time. Has been eating well. denying any suicidal or homicidal ideations. Denies any auditory or visual hallucinations. She claims that she is open to wean transition onto Abilify Maintenna injection to help control her symptoms. MENTAL STATUS EXAM: General Appearance: Patient appears to be stated age is alert, directable. Patient appears to have fair hygiene and grooming. Behavior: Patient is seated without any agitated behavior. More cooperative today Speech: Patient's speech is fluent and nonpressured. Soft tone, improving mildly Mood/Affect: Patient reports their mood is good, affect is congruent and improving affect Suicidality/Homicidality: Patient denies having any homicidal ideation intent or plan. denies any suicidal thoughts, no specific plan, improving today Perceptions: Patient denies any visual hallucinations and denies any auditory hallucinations Though content/process: There is no evidence of any delusional thought content and thought process is linear and goal-directed. Fairly concrete, improving mildly Memory and concentration: AOX3, grossly intact for the purposes of this session Judgment and insight: improving mildly IMPRESSIONS: Schizoaffective disorder depressive type Cannabis use disorder Alcohol use disorder, and sustained remission Nicotine dependence PLAN: -Patient is admitted under voluntary status to MHU for stabilization of psychiatric symptoms and safety. Patient has signed adult voluntary form and has signed medication consent and is placed in patient's chart. -Medications : Seroquel 300 mg nightly for mood stabilization/insomnia, Cymbalta 30 mg bid for mood/anxiety, Abilify 7.5 mg daily for mood stabilization/psychosis, patient is open to transitioning onto long-acting injection if needed, Depakote 500 mg twice daily for mood stabilization. Vivitrol injection 380 mg IM, last dose was given on 12/28 and next dose will be due q. monthly on 01/25 for alcohol cravings. -Ativan and Haldol PRN for agitation/aggression -NRT -nicotine patch -SW on board for discharge planning. Encourage patient to participate in groups to work on coping skills. hopeful for discharge friday if patient is improving.
[2024-12-30] MEDS: MAGNESIUM HYDROXIDE 2,400 MG/30 ML CUP PO PRN (22:00)
--- NOTE | 2024-12-31 09:22 | P.DS ---
Providers Date of admission: 12/27/24 20:29 Expected date of discharge: 12/31/24 Attending physician: Garrison Funk MD Consults: 12/27/24 21:26 Consult Physician Routine Consulting Provider: Josselin Physician Consult Reason/Comments: H&P and medical Do you want consulting provider notified?: Yes Primary care physician: Kelton Mancilal - Discharge Diagnosis(es) (1) Schizoaffective disorder, depressive type Current Visit: Yes Status: Acute Priority: High (2) Cannabis use disorder Current Visit: Yes Status: Acute Priority: Medium (3) Alcohol use disorder in remission Current Visit: Yes Status: Acute Priority: Low (4) Nicotine dependence Current Visit: Yes Status: Acute Priority: Low Hospital Course: Admission HPI: Admission note was completed by video game script writer "Patient is a 44-year-old female, interested. She has 3 kids collect Social Security and also works part- time at the [employer]. Patient presented to the hospital yesterday and was evaluated by EPS, patient apparently was making thoughts of suicidal statements of wanting to suffocate herself from carbon monoxide endorsing depression. Patient does have a history of schizoaffective disorder seen at [facility] on psychiatric medications currently. Patient was admitted voluntarily to the mental health unit. She was seen today agreeable to speak to video game script writer. Claims that she is "tired of waking up" and was fairly tearful during the initial parts of the conversation. She states that she been feeling more depressed and anxious lately. Claims that has been going on for the past month or so. States that she cannot see her daughter due to unknown reasons and also her granddaughter who she recently had. She claims that they have been fairly distant through their relationship and she does not like that. Claims that she also has a close friend that recently when she is still grieving about. Claims that she wanted her therapist and her therapist informed her to come to the hospital. She denies any suicide attempts however is still stated that she is having suicidal thoughts at this time to suffocate herself in a car with carbon monoxide. Denies any paranoia. Does claim that she has a history of hearing voices however has not 4 a couple of years now. Claims that her sleep is increased and appetite is decreased. Patient denies any homicidal ideations intent or plan. At this time patient denies any auditory or visual hallucinations. Patient denies any flight of ideas racing thoughts and increased in goal directed behavior. Patient admits to using marijuana daily, claims that she also smokes cigarettes, states that she used to drink alcohol significantly is currently on the Vivitrol injection and it is due for the next dose. Has been sober for several months now." Hospital course: Upon admission to the unit patient was directable and agreeable to commence treatment and signed adult voluntary form. Patient was initially depressed, tearful however with time and treatment patient got along well with other patients on the unit and followed unit protocol. Patient was compliant with the medications and denied any side effects throughout hospital course. Patient was started on Seroquel home dose 300 mg nightly for mood stabilization/insomnia, Cymbalta 30 mg twice daily for mood/anxiety, Abilify 7.5 mg daily for mood stabilization/psychosis, Depakote 500 mg twice daily for mood stabilization, patient did miss her monthly dose of Vivitrol IM, was given dose on the unit on 12/28 next dose will be due q. monthly and on 01/25 at [facility] for alcohol cravings. Patient spoke of her stressors and engaged in therapy both group/activity therapy. Patient was also seen by medical team for history and physical exam. Throughout the course of the hospitalization patient gradually improved with regards to mood, anxiety, psychosis, suicidal thoughts, sleep and became more future oriented with improved insight and judgment. On the day of discharge patient denied any suicidal or homicidal ideations intent or plan denied any auditory or visual hallucinations. Patient endorsed wanting to live for their health and family. The patient denied any access to guns or weapons. Patient denied any paranoia and did not endorse any delusions. Patient does have a significant history of substance abuse and was counseled on abstaining from all substances including alcohol and marijuana. Patient was offered however declined inpatient substance-abuse rehab. Patient elected to do outpatient substance use treatment program through their outpatient provider. Patient was also counseled on the medications and need for regular compliance and was encouraged to follow-up with their outpatient appointment for mental health and also for primary care. Prior to discharge a family meeting will be arranged by social worker masters to answer any questions and ensure safety upon discharge incuding making sure that guns/weapons are either removed from the home or locked away. Mental status exam: General Appearance: Patient appears to be stated age is alert, pleasant, and cooperative. Patient is in no acute distress and has improved hygiene and grooming Behavior: Patient is calmly seated without any agitated behavior. Speech: Patient's speech is fluent and nonpressured. Mood/Affect: Patient reports their mood is "good", affect is congruent and euthymic. Suicidality/Homicidality: Patient denies having any suicidal or homicidal ideation intent or plan. Perceptions: Patient denies any auditory or visual hallucinations. Though content/process: There is no evidence of any delusional thought content and thought process is linear and goal-directed. More future oriented Memory and concentration: AOX3, grossly intact for the purposes of this session. Can spell "WORLD" backwards correctly. Judgment and insight: improved with guarded prognosis Impression: Schizoaffective disorder depressive type Alcohol use disorder in remission Cannabis use disorder Nicotine dependence Plan: -Continue with discharge today as patient has improved and stabilized psychiatrically and is not currently an imminent threat to themself and/or others. Patient will remain at chronically elevated risk for harm to self and/or others due to their impulsivity and chronic mental needs. -Continue medications: Vivitrol IM, was given dose on the unit on 12/28 next dose will be due q. monthly and on 01/25 at [facility] for alcohol cravings. Seroquel 300 mg nightly for mood stabilization/insomnia/psychosis, Cymbalta 30 mg twice daily for mood/anxiety, Abilify 7.5 mg daily for mood stabilization/psychosis. Patient to work with her outpatient provider to gradually taper Seroquel and increase Abilify as tolerated. Patient is agreeable in the near future to be transition onto Abilify maintenna to help ensure compliance. -Patient was counseled on the need for medication compliance and appropriate follow-up at mental health and also primary care for medical issues. Patient verbalized understanding and agreed. -Social work to help coordinate patients discharge today. also to ensure safe home environment that guns/weapons are either removed from the home or locked away. Social work also to arrange for patients follow up appointments with [facility] for psychiatric care along with follow up with primary care provider. -Patient counseled on abstaining from recreational drugs and marijuana and alcohol. Was informed/educated on the adverse effects on their physical and mental health. Patient verbally agreed and understood. Patient was offered substance abuse treatment however declined at this time. -Patient was instructed to return to the hospital or seek immediate medical care if their psychiatric or medical symptoms do worsen or reoccur. Allergies Allergy/AdvReac Type Severity Reaction Status Date / Time naproxen [From Naprosyn] Allergy Anaphylaxis Verified 12/27/24 15:14 NSAIDS (Non-Steroidal Allergy Anaphylaxis Verified 12/27/24 15:14 Anti-Inflamma Laboratory Results WBC 4.07 10*3/uL (4.50-10.00) L 12/28/24 09:49 RBC 4.12 10*6/uL (4.10-5.20) 12/28/24 09:49 Hgb 12.0 g/dL (12.0-15.0) 12/28/24 09:49 Hct 38.7 % (37.2-46.3) 12/28/24 09:49 MCV 93.9 fL (80.0-97.0) 12/28/24 09:49 MCH 29.1 pg (27.0-32.0) 12/28/24 09:49 MCHC 31.0 g/dL (32.0-37.0) L 12/28/24 09:49 Plt Count 198 10*3/uL (140-440) 12/28/24 09:49 MPV 10.3 fL (9.5-12.2) 12/28/24 09:49 Immature Gran % (Auto) 0.2 % 12/28/24 09:49 Neutrophils % 42.8 % 12/28/24 09:49 Lymphocytes % 49.4 % 12/28/24 09:49 Monocytes % 5.4 % 12/28/24 09:49 Eosinophils % 1.7 % 12/28/24 09:49 Basophils % 0.5 % 12/28/24 09:49 Immature Gran # 0.01 10*3/uL (0.00-0.04) 12/28/24 09:49 Neutrophils # 1.74 10*3/uL (1.80-7.70) L 12/28/24 09:49 Lymphocytes # 2.01 10*3/uL (0.90-5.00) 12/28/24 09:49 Monocytes # 0.22 10*3/uL (0.20-1.00) 12/28/24 09:49 Eosinophils # 0.07 10*3/uL (0.04-0.35) 12/28/24 09:49 Basophils # 0.02 10*3/uL (0.00-0.10) 12/28/24 09:49 Sodium 143 mmol/L (137-145) 12/28/24 09:49 Potassium 5.1 mmol/L (3.5-5.1) 12/28/24 09:49 Chloride 109 mmol/L (98-107) H 12/28/24 09:49 Carbon Dioxide 32 mmol/L (22-30) H 12/28/24 09:49 Anion Gap 2 mmol/L 12/28/24 09:49 BUN 16 mg/dL (7-17) 12/28/24 09:49 Creatinine 1.17 mg/dL (0.52-1.04) H 12/28/24 09:49 Est GFR (CKD-EPI)AfAm 65 (>60 ml/min/1.73 sqM) 12/28/24 09:49 Est GFR (CKD-EPI)NonAf 56 (>60 ml/min/1.73 sqM) 12/28/24 09:49 Glucose 98 mg/dL (74-99) 12/28/24 09:49 POC Glucose (mg/dL) 116 mg/dL (70-110) H 12/30/24 11:20 POC Glu Digital Forensic Examiner ID Felipe Royal 12/30/24 11:[address] Glu mg/dL 108 mg/dL 12/28/24 09:49 Hemoglobin A1c 5.4 % (<=6.0) 12/28/24 09:49 Calcium 9.2 mg/dL (8.4-10.2) 12/28/24 09:49 Total Bilirubin 0.2 mg/dL (0.2-1.3) 12/28/24 09:49 AST 20 U/L (14-36) 12/28/24 09:49 ALT 13 U/L (4-34) 12/28/24 09:49 Alkaline Phosphatase 46 U/L (38-126) 12/28/24 09:49 Total Protein 5.7 g/dL (6.3-8.2) L 12/28/24 09:49 Albumin 3.4 g/dL (3.5-5.0) L 12/28/24 09:49 Triglycerides 103.00 mg/dL (0.00-149.00) 12/28/24 09:49 Cholesterol 169.00 mg/dL (0.00-200.00) 12/28/24 09:49 LDL Cholesterol, Calc 89.6 mg/dL (0.0-131.0) 12/28/24 09:49 VLDL Cholesterol, Calc 20.60 mg/dL (5.00-40.00) 12/28/24 09:49 HDL Cholesterol 58.80 mg/dL (40.00-60.00) 12/28/24 09:49 Cholesterol/HDL Ratio 2.87 Ratio 12/28/24 09:49 TSH 1.480 mIU/L (0.465-4.680) 12/28/24 09:49 Free T4 0.68 ng/dL (0.78-2.19) L 12/28/24 09:49 Urine Color Yellow 12/27/24 16:47 Urine Appearance Cloudy (Clear) H 12/27/24 16:47 Urine pH 6.5 (5.0-8.0) 12/27/24 16:47 Ur Specific [place] 1.033 (1.001-1.035) 12/27/24 16:47 Urine Protein Trace (Negative) H 12/27/24 16:47 Urine Glucose (UA) Negative (Negative) 12/27/24 16:47 Urine Ketones Negative (Negative) 12/27/24 16:47 Urine Blood Negative (Negative) 12/27/24 16:47 Urine Nitrite Negative (Negative) 12/27/24 16:47 Urine Bilirubin Negative (Negative) 12/27/24 16:47 Urine Urobilinogen 2.0 mg/dL (<2.0) 12/27/24 16:47 Ur Leukocyte Esterase Negative (Negative) 12/27/24 16:47 Urine RBC 1 /hpf (0-5) 12/27/24 16:47 Urine WBC 2 /hpf (0-5) 12/27/24 16:47 Ur Squamous Epith Cells 1 /hpf (0-4) 12/27/24 16:47 Calcium Oxalate Crystal Moderate /hpf (None) H 12/27/24 16:47 Urine Mucus Occasional /hpf (None) H 12/27/24 16:47 Urine HCG, Qual Not Detected (Not Detectd) 12/27/24 16:47 Urine Opiates Screen Not Detected (NotDetected) 12/27/24 16:47 Ur Oxycodone Screen Not Detected (NotDetected) 12/27/24 16:47 Urine Methadone Screen Not Detected (NotDetected) 12/27/24 16:47 Ur Barbiturates Screen Not Detected (NotDetected) 12/27/24 16:47 Valproic Acid 65.6 ug/mL 12/28/24 09:49 U Tricyclic Antidepress Detected (NotDetected) H 12/27/24 16:47 Ur Phencyclidine Scrn Not Detected (NotDetected) 12/27/24 16:47 Ur Amphetamines Screen Not Detected (NotDetected) 12/27/24 16:47 U Methamphetamines Scrn Not Detected (NotDetected) 12/27/24 16:47 U Benzodiazepines Scrn Not Detected (NotDetected) 12/27/24 16:47 Urine Cocaine Screen Not Detected (NotDetected) 12/27/24 16:47 U Marijuana (THC) Screen Detected (NotDetected) H 12/27/24 16:47 SARS-CoV-2 (PCR) Not Detected (Not Detectd) 12/27/24 19:30 Vital Signs Temp 97.7 F 12/30/24 21:00 Pulse 66 12/30/24 21:00 Resp 16 12/30/24 21:00 BP 97/65 12/30/24 21:00 Pulse Ox 98 12/30/24 21:00 FiO2 Patient Condition at Discharge: Stable Plan - Discharge Summary Discharge Rx Participant: No New Discharge Prescriptions: New Nicotine 14Mg/24Hr Patch [Habitrol] 1 patch TRANSDERM DAILY patch Naltrexone Microspheres [Vivitrol] 380 mg IM Q28D #1 each ARIPiprazole [Abilify] 15 mg PO DAILY 30 Days #15 tablet DULoxetine HCL [Cymbalta] 30 mg PO BID 30 Days #60 cap Divalproex [Depakote] 500 mg PO BID 30 Days #60 tab Continue Omeprazole [PriLOSEC] 40 mg PO DAILY #30 capsule. Levothyroxine Sodium [Synthroid] 50 mcg PO AC-BRKFST QUEtiapine FUMARATE [SEROquel XR] 300 mg PO HS 30 Days #30 tab Discontinued Divalproex Sodium [Depakote] 1,000 mg PO HS Naltrexone Microspheres [Vivitrol] 380 mg IM Q28D Cariprazine HCl [Vraylar] 6 mg PO DAILY Dextromethorphan HBr/Bupropion [Auvelity ER 45-105 mg Tablet] 1 tab PO BID Discharge Medication List Omeprazole [PriLOSEC] 40 mg PO DAILY #30 capsule. 08/08/20 [Rx] Levothyroxine Sodium [Synthroid] 50 mcg PO AC-BRKFST 12/27/24 [History] ARIPiprazole [Abilify] 15 mg PO DAILY 30 Days #15 tablet 12/31/24 [Rx] DULoxetine HCL [Cymbalta] 30 mg PO BID 30 Days #60 cap 12/31/24 [Rx] Divalproex [Depakote] 500 mg PO BID 30 Days #60 tab 12/31/24 [Rx] Naltrexone Microspheres [Vivitrol] 380 mg IM Q28D #1 each 12/31/24 [Rx] Nicotine 14Mg/24Hr Patch [Habitrol] 1 patch TRANSDERM DAILY patch 12/31/24 [Rx] QUEtiapine FUMARATE [SEROquel XR] 300 mg PO HS 30 Days #30 tab 12/31/24 [Rx] Follow up Appointment(s)/Referral(s): [facility] [Outside] - 01/03/25 3:00 pm (01/03/2025 3:00PM - 4:00PM AMY LOCKE 01/12/2025 12:00PM - 12:30PMKelton Armas MD [Primary Care Provider] - 1-2 days Discharge Disposition: HOME SELF-CARE
[2024-12-31 10:11] VITALS: BP 138/90; PULSE 97; RESP 18; TEMP 97.8
== END 2024-12-31 10:34 | disposition home or self-care (01) | DRG 885 ==
LOC: EC 12:58 → 3MHU 20:29
PROVIDERS: ADMIT Psychiatry & Neurology Psychiatry; ATTEND Psychiatry & Neurology Psychiatry
DX: F25.1 Schizoaffective disorder, depressive type (principal); R45.851 Suicidal ideations; E03.9 Hypothyroidism, unspecified; F10.11 Alcohol abuse, in remission; F12.10 Cannabis abuse, uncomplicated; F60.3 Borderline personality disorder; M19.90 Unspecified osteoarthritis, unspecified site; G47.30 Sleep apnea, unspecified; F17.210 Nicotine dependence, cigarettes, uncomplicated; F41.9 Anxiety disorder, unspecified; F43.10 Post-traumatic stress disorder, unspecified; G47.00 Insomnia, unspecified; K21.9 Gastro-esophageal reflux disease without esophagitis; Z71.51 Drug abuse counseling and surveillance of drug abuser; Z79.890 Hormone replacement therapy; Z79.899 Other long term (current) drug therapy; Z98.84 Bariatric surgery status; Z11.52 Encounter for screening for COVID-19; Z88.6 Allergy status to analgesic agent
CPT/HCPCS: 80053; 80061; 80164; 80306; 81001; 81025; 82075; 83036; 84439; 84443; 85025; 87635; 99285